=== PATIENT | male | born 1950 | race Caucasian/White ===

== ENCOUNTER → 2023-12-08 10:52 | Outpatient (REF) | payer MEDICARE, OTHER, SELFPAY | LOC: RAD 10:52 | PROVIDERS: ATTENDING PHYSICIAN Internal Medicine Hematology & Oncology; FAMILY PHYSICIAN Family Medicine | DX: C90.00 Multiple myeloma not having achieved remission (principal) | CPT/HCPCS: 77075 ==

== ENCOUNTER 2024-08-23 17:12 | Inpatient (IN) | payer MEDICARE, OTHER, SELFPAY ==
[2024-08-23] VITALS (11 sets, daily range): BP systolic 70–102; BP diastolic 52–69; BMI 27.4; BMI 27.1
--- NOTE | 2024-08-23 13:44 | ED.GENMED ---
History of Present Illness
General
Chief Complaint: Heart Rate Problem
Source: patient and family
Exam Limitations: none
Time Seen by Provider: 08/23/24 13:18
Nursing documentation reviewed up to this point in time: agreed with
History of Present Illness
History of Present Illness:
74-year-old male presents emergency department due to cough, and rapid heart rate. He was diagnosed with pneumonia clinically yesterday, started on azithromycin and Augmentin. This morning daughter noticed that his pulse was fast, and checked it
on a registered nurse cardiac with his fingers, and it diagnosed atrial fibrillation.
Past History
Past History
ED Past Medical History: Other (Prostatitis)
ED Past Surgical History: Other (Hernia repair: Stem cell transplant)
Social History
Tobacco: Non-smoker
Personal:
Review of Systems
Review of Systems
Allergies reviewed?: Yes
All Other Systems: Not applicable
Constitutional: Reports no symptoms
EENT: Reports no symptoms
Respiratory: Reports cough
Cardiac: Reports palpitations
ABD/GI: Reports no symptoms
: Reports no symptoms
Musculoskeletal: Reports no symptoms
Skin: Reports no symptoms
Neurological: Reports no symptoms
Endocrine: Reports no symptoms
Hematologic/Lymphatic: Reports no symptoms
Psychiatric: Reports no symptoms
Phy Exam
Physical Exam
Physical Exam:
Physical Exam
General: no apparent distress, not acutely ill
Neck: supple. no meningeal signs. normal posterior pharynx
Heart: s1/s2 tachycardia, irregular rhythm, no murmur. equal radial
pulses.
HEENT: Pupils equal round reactive to light, EOMI
Lungs: no acute respiratory distress. clear bilaterally
Abdomen: normal bowel sounds. not tender. no CVAT
Neuro: alert and oriented. no focal neurological deficits
Skin: no rash
Psychiatric: well kept. interactive and cooperative
Extremities: no edema. no calf tenderness. negative homans. good distal pulses
Course
Orders/Labs/Results
Orders:
Orders
08/23/24 13:16
EKG [Electrocardiogram (*1)] Urgent
Reason for Study: Atrial Fibrillation
08/23/24 13:17
EKG- Treatment ONCE
08/23/24 13:41
IV Insert/Care/Rem.- Treatment PRN
08/23/24 13:42
CR Chest Portable - 1 View Urgent
Comment:
Reason For Exam: cough, fever
Reason Study Needs to be Portable: Patient Unstable
08/23/24 14:20
Basic Metabolic Panel Urgent
Lactic Acid Q4H
Comment: CANCEL 2nd LACTIC ACID IF 1st LACTIC ACID IS LESS THAN 2
NT-proBNP Urgent
Troponin I Urgent
Blood Culture Routine
JANET Source: Blood/Venous
Specimen Description:
08/23/24 14:27
Complete Blood Count/With Diff Urgent
Manual Differential Urgent
08/23/24 14:51
0.9% Sodium Chloride 500 ml [Nss] 500 ml IV BOLUS
08/23/24 15:28
Cefepime HCl [Maxipime] 2,000 mg IV NOW STA
08/23/24 15:46
Vancomycin [Vancocin] 2,000 mg 0.9% Sodium Chloride 500 ml [Nss] 500 ml IV NOW
08/23/24 15:50
Amiodarone [Cordarone] 150 mg Dextrose 5%/Water 100 ml [D5w] 100 ml IV NOW
08/23/24 15:57
Sterile Water [Sterile Water For Injection] 10 ml .ROUTE .[facility]
08/23/24 16:00
Amiodarone [Cordarone] 900 mg DEXTROSE 5% PVC-free BAG [D5W PVC-free BAG] 500 ml IV PER PROTOCOL
Initial Dose in mg/min:: 1
Duration of initial dose (hours):: 6
Subsequent dose in mg/min:: 0.5
Duration of subsequent dose (hours):: 18
Maximum dose in mg/min:: 1
Hold and notify provider if:: Heart rate < 60 BPM or SBP < 90 mmHg or MAP < 60 mmHg
08/23/24 17:45
Lactic Acid Q4H
Comment: CANCEL 2nd LACTIC ACID IF 1st LACTIC ACID IS LESS THAN 2
Abnormal Lab Results
08/23/24 08/23/24
14:20 14:27
WBC 2.6 L 10^3/uL
(4.8-10.8)
RBC 3.03 L 10^6/uL
(4.70-6.10)
Hgb 9.7 L g/dL
(13.0-18.0)
Hct 28.4 L %
(39.0-52.0)
MCH 32.0 H pg
(27.0-31.0)
RDW 18.5 H %
(11.5-14.5)
Plt Count 40 L 10^3/uL
(130-400)
Sodium 133 L mmol/L
(135-145)
Chloride 97 L mmol/L
(98-107)
Carbon Dioxide 21 L mmol/L
(22-30)
BUN 40 H mg/dl
(9-20)
Creatinine 1.5 H mg/dL
(0.7-1.3)
Glucose 155 H mg/dl
(70-99)
Calcium 8.0 L mg/dl
(8.4-10.2)
Troponin I 0.096 H* ng/ml
08/23/24 14:27
08/23/24 14:20
Vital Signs
Initial and Last Documented VS:
Initial Vital Signs
BP
93/57
08/23/24 13:17
Last Documented Vital Signs
Temp Pulse Resp BP Pulse Ox
98.7 F 141 17 95/64 93
08/23/24 13:19 08/23/24 15:00 08/23/24 15:00 08/23/24 14:00 08/23/24 15:00
MDM/Problems Addressed
Differential Diagnosis Includes:
Rapid atrial fibrillation, pneumonia
MDM/Problems Addressed:
74-year-old male with pneumonia,, thrombocytopenia, multiple myeloma, rapid atrial fibrillation. Discussed with cardiology, who will see patient, discussed with hospitalist who will admit.
Chronic conditions affecting care: Cancer (Multiple myeloma)
Acute Exacerbation and/or Progression of Chronic Illness: Arrhythmia and Cancer (Multiple myeloma)
*Radiology
Radiology exam reviewed: radiology read reviewed (Chest x-ray right lower lobe pneumonia)
*Pulse Oximetry
Patient hypoxic: no
*EKG
Interpreted by ED Provider?: Yes
EKG Intrepretation Date: 08/23/24
EKG Intrepretation Time: 13:19
Interpretation: abnormal
Comparison EKG: changes noted
Heart Rate: 138
Rate: tachycardiac
Rhythm: a-fib
[place]: right axis deviation
Interval: normal interval
QRS Pattern: normal QRS
Ischemia: no ischemia
*Natural Gas Engineer Interpretation
Rate: tachycardiac
Interpretation: abnormal
Heart Rate: 132
Rhythm: a-fib
*Critical Care Note
Total Time (30-74mins, 75-104mins- exclusive of procedures): 45
comment:
Critical care statement: A total of 45 minutes of critical care time was provided for this patient. This includes management of unstable vital signs, evaluation of the patient at bedside, reviewing the patient's pertinent medical records, discussion
with consultants, review of old EKGs and review of pertinent medical records. This time with separate from time utilized to perform the aforementioned documented procedures
ED Attending Note
-
Portions of this chart may have been created with voice recognition software.� Occasional wrong word or��sound alike� substitutions may have occurred due to the inherent limitations of voice recognition software.
Discharge Plan
Departure
Patient Disposition: Admit
Date of Disposition: 08/23/24
Time of Disposition: 15:30
Admit to: IMU
Presentation/result/management discussed w/ accepting MD/DO: Hospitalist
Patient with high blood pressure during this ER visit?: No
Condition: Fair
Discharge Problem:
Atrial fibrillation with rapid ventricular response, Pneumonia involving right lung, Multiple myeloma, Thrombocytopenia
Prescriptions:
No Action
aspirin 81 MG tablet,delayed release (DR/EC)
81 mg PO DAILY
lysine 500 mg Tablet
500 mg PO DAILY
flaxseed 1,000 mg Capsule
1,000 mg PO DAILY
multivitamin Tablet
1 tab PO DAILY
Metamucil Packet
1 packet PO DAILY
levothyroxine 88 mcg Tablet
88 mcg PO DAILY
alfuzosin 10 mg Tablet Extended Release 24 Hr
10 mg PO DAILY
lenalidomide [Revlimid] 15 mg Capsule
15 mg PO UD
Rx Instructions:
TAKE FOR 21 DAY THEN OFF FOR 7 DAYS
calcium carbonate-vitamin D3 [Calcium 500 + D (D3)] 500 mg-3.125 mcg (125 unit) Tablet
2 tab PO DAILY
azithromycin 250 mg Tablet
0 mg PO .COMPLEX
Rx Instructions:
For 250 mg dose pack: take 500 mg today (day 1), then 250 mg for 4 days (days 2-5)
famotidine [Pepcid] 40 mg Tablet
40 mg PO HS
acetaminophen [Tylenol Extended Release] 650 mg Tablet Extended Release
1,300 mg PO [id number] PRN (Reason: MILD PAIN)
docusate sodium [Colace] 100 mg Capsule
100 mg PO DAILYPRN PRN (Reason: CONSTIPATION)
finasteride 5 mg Tablet
5 mg PO DAILY
amoxicillin-pot clavulanate [Augmentin] 875-125 mg Tablet
1 tab PO BID
Referrals:
Deion Marte Jr., DO [Family Provider] -
Interventions
Interventions:
*Risk Screen - Suicide Last Done: 08/23/24 13:19
*General Assessment Last Done: 08/23/24 13:19
*Neglect/Abuse Screening Last Done: 08/23/24 13:19
ED- Fall Risk Assessment Last Done: 08/23/24 15:12
ED- Cardiac Assessment Last Done: 08/23/24 15:12
ED- Pulmonary Assessment Last Done: 08/23/24 15:12
Discharge Date and Time
Print Language: UKRAINIAN
[2024-08-23 14:44] LABS: Lactic Acid 1.9 mmol/L (0.7-2.0)
[2024-08-23 14:44] LABS: Hematocrit 28.4 % (39.0-52.0); Hemoglobin 9.7 g/dL (13.0-18.0); Mean Corp Hgb Conc. 34.2 g/dL (33.0-37.0); Mean Corpuscular Volume 93.7 fL (80.0-94.0); Red Blood Cell Count 3.03 10^6/uL (4.70-6.10); Red Cell Dist. Width 18.5 % (11.5-14.5); White Blood Cell Count 2.6 10^3/uL (4.8-10.8)
[2024-08-23 14:51] LABS: Blood Urea Nitrogen 40 mg/dl (9-20); Carbon Dioxide 21 mmol/L (22-30); Chloride 97 mmol/L (98-107); Estimated Creatinine Clearance 39 ml/min; Glucose 155 mg/dl (70-99); Sodium 133 mmol/L (135-145); eGFR 47.95
[2024-08-23 15:00] LABS: NT-proBNP 5330 pg/ml; Troponin I 0.096 ng/ml
--- NOTE | 2024-08-23 15:41 | CON.CAR ---
Addendum entered and electronically signed by Rod Jimenez MD (Ellie) 08/23/24 18:39:
I saw and examined the patient.
The resident's note was reviewed and I agree with the note.
Comment:
Kenneth West is a 74-year-old man with a past medical history of multiple myeloma in remission who presents with new onset atrial flutter. History is obtained from patient and his daughter who is at bedside. He reportedly has had shortness of
breath, cough, fever, and chills for the past several days. He went to his PCP office yesterday and was prescribed azithromycin and Augmentin. Today his daughter checked his pulse ox and found it to be low at 80%. She also noted that his heart
rate was in the 130s-140s and was irregular. His Kardia device interpreted as atrial fibrillation, so she brought him to the ER. Heart rates here have been in the 140s. Blood pressures have been 70s-90s/50s. He was bolused with amiodarone which
did not improve heart rates. ECG shows 2-1 atrial flutter. Labs are notable for creatinine 1.5, Troponin 0.096, BNP 5330, pancytopenia with platelets of 40.
In summary this is a 74-year-old man with multiple myeloma in remission who presents with sepsis from pneumonia and atrial flutter. We are limited in being able to control his rates due to his hypotension. He cannot be on any AV lonnie blocking
agents. He also cannot be anticoagulated due to his thrombocytopenia, so he is not a candidate for chemical or direct-current cardioversion. We will have to tolerate his atrial flutter with heart rates in the 140s to 150s. I hope that this will
resolve once his sepsis is under control. We should continue to resuscitate him with IV fluids and vasopressors as needed for goal MAP greater than 65. Defer antibiotic management to his primary team. We will continue to follow along. Please
call with additional questions or concerns.
Original Note:
Consultation
Consultation Request
Date/Time Consultation Requested: 08/23/24
Date/Time Consultation Performed: 08/23/24
Requesting Provider: Dr Penelope Jimenez
Performing Provider: Dr Claudia Mason
Reason for Consultation: afib/aflutter
Medical History
Past Medical History
Past Medical History: Cancer (multiple myeloma in remission), GERD and Hypothyroidism
Past Surgical History: Other (Stem cell transplant)
Social History
Tobacco: Non-Smoker
Alcohol: None
Drug: None
Living: With Family
Employment: Retired
Family History
Family History: Reviewed & Not Pertinent
Allergies / Home Medications
Allergy/AdvReac Type Severity Reaction Status Date / Time
No Known Allergies Allergy Verified 08/04/22 08:20
�Medication �Instructions �Recorded �Confirmed �Type
aspirin 81 mg tablet,delayed 81 mg PO DAILY 02/26/14 08/23/24 History
release
flaxseed 1,000 mg capsule 1,000 mg PO DAILY 02/27/14 08/23/24 History
lysine 500 mg tablet 500 mg PO DAILY 02/27/14 08/23/24 History
alfuzosin 10 mg tablet,extended 10 mg PO DAILY 07/31/22 08/23/24 History
release 24 hr
calcium 500 mg (as 2 tab PO DAILY 07/31/22 08/23/24 History
carbonate)-vitamin D3 3.125 mcg
(125 unit) tablet
lenalidomide 15 mg capsule 15 mg PO UD 07/31/22 08/23/24 History
(Revlimid)
levothyroxine 88 mcg tablet 88 mcg PO DAILY 07/31/22 08/23/24 History
multivitamin 1 tab PO DAILY 07/31/22 08/23/24 History
psyllium 1 packet PO DAILY 07/31/22 08/23/24 History
acetaminophen 650 mg 1,300 mg PO [id number] PRN MILD PAIN 08/23/24 08/23/24 History
tablet,extended release
amoxicillin 875 mg-potassium 1 tab PO BID 08/23/24 08/23/24 History
clavulanate 125 mg tablet
azithromycin 250 mg tablet 0 mg PO .COMPLEX 08/23/24 08/23/24 History
docusate sodium 100 mg capsule 100 mg PO DAILYPRN PRN CONSTIPATION 08/23/24 08/23/24 History
(Colace)
famotidine 40 mg tablet (Pepcid) 40 mg PO HS 08/23/24 08/23/24 History
finasteride 5 mg tablet 5 mg PO DAILY 08/23/24 08/23/24 History
Review of Systems
-
All other systems: Negative unless noted
Respiratory: Cough and Trouble Breathing
Physical Exam
Vital Signs
Temp Pulse Resp BP Pulse Ox
98.7 F 141 17 95/64 93
08/23/24 13:19 08/23/24 15:00 08/23/24 15:00 08/23/24 14:00 08/23/24 15:00
Lab Results
08/23/24 14:27
08/23/24 14:20
Troponin I 0.096 ng/ml H* 08/23/24 14:20
[id number] Pept 5330 pg/ml 08/23/24 14:20
Physical Exam
General: No Apparent Distress and Comfortable
HEENT: Normocephalic and Anicteric
Respiratory: Crackles (at the bases )
Cardiac: Irregular Rhythm and Murmur (left and right sternal border ); Negative JVD
Musculoskeletal: No Edema
Neuro: AO x 3
Psych: Calm
Impression / Plan
-
Impression
Atrial fibrillation/a flutter
Hypotension
Abnormal troponin level
CAP
Assessment and plan
Atrial flutter/ afib
Immunocompromised. H/o multiple myeloma in remission
CHADVASC SCORE 2
Blood pressure readings are low 95/64.
Rate control with beta-blockers/calcium channel blockers will reduce the pressures more.
Only option is rhythm control with Amiodarone IV
Will start Apixiban 5mg BID
History of multiple myeloma in remission
Will check echocardiogram
NPO after midnight for possible WALDO tomorrow
Hypotension
Hold finasteride, alfuzosin
Abnormal Troponin levels
trop 0.096, trend troponin levels
CAP
right basilar consolidation on CXR
Continue oral azithromycin and Augmentin
Data Reviewed
-
EKG: Tracing Personally Visualized and interpreted, Report Reviewed by me and Discussed with Physician
Radiology: Image Personally Visualized and interpreted, Report Reviewed by me and Discussed with Physician
Labs: Labs Reviewed by me and Discussed with Physician
[2024-08-23 15:51] LABS: Platelet Count 40 10^3/uL (130-400)
[2024-08-23] MEDS: MAXIPIME 2000 MG IV (15:59)
[2024-08-23] MEDS: VANCOCIN 540 MG IV (16:01)
--- NOTE | 2024-08-23 16:08 | HPS.HSE ---
Family Physician
-
Family Physician: Deion Marte Jr.
Chief Complaint
-
Heart Rate Problem
History of Present Illness
Patient is a 74-year-old male with PHM of hypothyroidism, enlarged prostate, hyperlipidemia, and multiple myeloma. Patient presented to [facility] for evaluation of cough and rapid heart rate. Patient and daughter supplied history for this
assessment. Patient yesterday diagnosed out patient with pneumonia and PCP started azithromycin and Augmentin for treatment. Patient states he has had chills, sweats, shortness of breath with exertion, nausea and vomiting yesterday, unsure if was
febrile at home. Denies any constipation, diarrhea, chest pain, palpitations, or urinary symptoms. Daughter stated this morning he did not look well when she placed a POX on patient and his SpO2 was in mid 80s and HR in 150s. She then utilized a
monitor that recorded Afib so EMS was called to transport patient.
Medical History
Past Medical History
Past Medical History: Reports Other
Additional Past Medical History:
hypothyroidism
enlarged prostate
hyperlipidemia
multiple myeloma
Past Surgical History: Reports Other
Additional Past Surgical History:
inguinal hernia 2021
Social History
Tobacco: Non-smoker
Alcohol: None
Drug: None
Personal: Single
Living: Alone
Employment: Retired
Family History
Family History: Not pertinent
Allergies / Home Medications
Allergies reflects when Allergies were last updated in [employer] ([employer]
Home Medications with original date entered in [employer] ([employer])
Allergy/Medication List:
Allergies
Allergy/AdvReac Type Severity Reaction Status Date / Time
No Known Allergies Allergy Verified 08/04/22 08:20
Home Medications Table - record
�Medication �Instructions �Recorded �Confirmed
aspirin 81 mg tablet,delayed 81 mg PO DAILY 02/26/14 08/23/24
release
flaxseed 1,000 mg capsule 1,000 mg PO DAILY 02/27/14 08/23/24
lysine 500 mg tablet 500 mg PO DAILY 02/27/14 08/23/24
alfuzosin 10 mg tablet,extended 10 mg PO DAILY 07/31/22 08/23/24
release 24 hr
calcium 500 mg (as 2 tab PO DAILY 07/31/22 08/23/24
carbonate)-vitamin D3 3.125 mcg
(125 unit) tablet
lenalidomide 15 mg capsule 15 mg PO UD 07/31/22 08/23/24
(Revlimid)
levothyroxine 88 mcg tablet 88 mcg PO DAILY 07/31/22 08/23/24
multivitamin 1 tab PO DAILY 07/31/22 08/23/24
psyllium 1 packet PO DAILY 07/31/22 08/23/24
acetaminophen 650 mg 1,300 mg PO [id number] PRN MILD PAIN 08/23/24 08/23/24
tablet,extended release
amoxicillin 875 mg-potassium 1 tab PO BID 08/23/24 08/23/24
clavulanate 125 mg tablet
azithromycin 250 mg tablet 0 mg PO .COMPLEX 08/23/24 08/23/24
docusate sodium 100 mg capsule 100 mg PO DAILYPRN PRN CONSTIPATION 08/23/24 08/23/24
(Colace)
famotidine 40 mg tablet (Pepcid) 40 mg PO HS 08/23/24 08/23/24
finasteride 5 mg tablet 5 mg PO DAILY 08/23/24 08/23/24
Review of Systems
-
Constitutional: Reports Fever, Night Sweats and Chills
EENT: Reports No Symptoms
Respiratory: Reports Cough and Trouble Breathing (dyspnea with exertion)
Cardiac: Reports No Symptoms
Abdomen/GI: Reports Nausea and Vomiting
: Reports No Symptoms
Musculoskeletal: Reports No Symptoms
Skin: Reports No Symptoms
Neurological: Reports No Symptoms
Endocrine: Reports No Symptoms
Hematologic/Lymphatic: Reports No Symptoms
Psych: Reports No Symptoms
Physical Exam
Vital Signs
Vital Signs
Temp Pulse Resp BP Pulse Ox
98.7 F 141 17 95/64 93
08/23/24 13:19 08/23/24 15:00 08/23/24 15:00 08/23/24 14:00 08/23/24 15:00
Physical Exam
General: Well Developed, Well Nourished, Comfortable and Conversant
HEENT: NormoCephalic, Moist mucous membranes, Atraumatic, PERRLA, [place] Conjunctivae, Nose Appears Normal, Ears Appear Normal and Hearing Impaired (hard of hearing)
Respiratory: Clear; No Wheezes, Rales, Rhonchi or Crackles
Cardiac: S1/S2 and Irregular Rhythm; No Murmur, Rub or Gallop
Breast: Deferred by me
GI: Soft, Non Tender, Non Distended and Normal Bowel Sounds; No Organomegaly
Rectal: Deferred by Provider
Genito-urinary: Deferred by me
Musculoskeletal: No Clubbing, No Cyanosis and No Edema
Skin: Warm, Dry and IV/Catheter Site; No Rash
Neuro: Awake, Alert, AO x 3, Nonfocal/grossly intact and Cranial Nerves Intact
Hematologic/Lymphatic: No Lymphadenopathy
Psych: Calm and Intact Judgment/Insight
Laboratory Results
-
08/23/24 14:27
08/23/24 14:20
Laboratory Results
Lactic Acid 1.9 mmol/L (0.7-2.0) 08/23/24 14:20
Total Bilirubin Cancelled 08/23/24 14:20
AST Cancelled 08/23/24 14:20
ALT Cancelled 08/23/24 14:20
Alkaline Phosphatase Cancelled 08/23/24 14:20
Troponin I 0.096 ng/ml H* 08/23/24 14:20
Data Reviewed
-
Diagnostic Radiology: Report Reviewed by me (CXR: Mild right basilar pneumonia)
Medical Tests (Nuc Med, Echo, EKG etc): Report Reviewed by me (EKG: ATRIAL FLUTTER WITH 2:1 A-V CONDUCTION RIGHT AXIS DEVIATION)
Lab Data: Labs Reviewed by me (BUN 40, Creat 1.5)
Impression/Plan
-
IMPRESSION/PLAN:
#Pneumonia/KEREN
- CXR - Mild right basilar pneumonia
- Vancomycin, Zosyn
- IVF: NSS 100cc/hr
- check covid/flu
#Atrial Flutter
- EKG: ATRIAL FLUTTER WITH 2:1 A-V CONDUCTION; RIGHT AXIS DEVIATION
- Consult Cardiology
- cardiology to contact Oncologist at [facility] regarding starting anticoagulant
#GERD
- continue famotidine
#Hypothyroidism
- continue levothyroxine
#Enlarged prostate/BPH
- continue finasteride, alfuzosin
#Hyperlipidemia
- heart healthy diet
- continue Aspirin 81mg
#Multiple myeloma in remission
- stem cell transplant 2019
- hold lenalidomide
Full Code
DVT Px: SCDs
[2024-08-23] MEDS: CORDARONE 103 MG IV (16:20)
[2024-08-23] MEDS: CORDARONE 518 MG IV (16:31)
--- NOTE | 2024-08-23 17:09 | W.PN.UPDATE ---
Update Note
Progress Note Update
This is an addendum to H&P written by Vanessa Cazares on 08/23/2024. Patient seen and examined independently with TRAVEL ACCOMMODATIONS RATER.
74-year-old male past medical history of multiple myeloma on Revlimid in remission, Hhypothyroidism, BPH, presenting with chills, fatigue, shortness of breath over the past several days. He was diagnosed with pneumonia yesterday and started on
azithromycin/Augmentin. Today he was noted to be in new onset atrial fibrillation at home.
Patient arrives with blood pressure 90s systolic with heart rate up to 154. New onset atrial fibrillation. Labs show KEREN, cardiac BNP of 5000, pancytopenia with leukocytes of 2.6, platelets of 40.
Chest x-ray shows mild right basilar pneumonia. Patient with sepsis secondary to right basilar pneumonia and new onset atrial fibrillation with RVR. IV fluids started. Check blood culture. Vancomycin/Zosyn. Check influenza/COVID. Check TSH.
Amiodarone drip started. Will need to start Eliquis however daughter requesting that cardiology discussed with his oncologist at [facility] as to whether safe to start Eliquis. Check echo. Daughter requesing evaluation for PE. Trend
troponins. Consider CT PE after renal function improves.
Will consult oncology due to pancytopenia and thrombocytopenia in the setting of sepsis.
[2024-08-23 17:47] LABS: COVID-19 Antigen Negative (Negative)
[2024-08-23] MEDS: NSS 1000 IV (18:46)
--- NOTE | 2024-08-23 18:59 | PHA.VAN.IN ---
Assessment
- Assessment
Renal Function: Appears elevated from baseline (06/25/22 BASELINE SCR = 0.8)
Concomitant Antimicrobials: ZOSYN
- Previous Dosing Experience
Previous Regimen: 1500MG IV Q12H
Date of Regimen: 02/27/14
Provided Trough of: UNKNOWN
Provided AUC of: UNKNOWN
Patient's SCR is: Elevated compared to previous dosing experience (02/27/14 SCR = 0.8)
Patient's weight is: Decreased compared to previous dosing experience (02/27/14 WT = 84.6 KG)
Plan
- Plan
Initial / Loading Dose: 2GM
Maintenance Regimen: DOSING BY RANDOM LEVELS
Monitoring: RANDOM VANCOMYCIN LEVEL 08/24/24 AM
Pharmacokinetics Vancomycin I
- -
Patient Age: 74
Patient Sex: Male
Vancomycin Day #: 1
Indication: Pulmonary/Respiratory (SEPSIS)
Requesting Provider: TORI
Height / Weight:
Height 5 ft 7 in
Actual Weight 79.3 kg
Pertinent Past Medical History: MULTIPLE MYELOMA
- Vital Signs / Lab Results
Temp Pulse Resp BP Pulse Ox
98.7 F 150 31 94/55 93
08/23/24 13:19 08/23/24 18:45 08/23/24 18:45 08/23/24 18:00 08/23/24 16:45
Lab Results - Hematology
08/23/24
14:27
WBC 2.6 L
Lab Results - Chemistry
08/23/24
14:20
BUN 40 H
Creatinine 1.5 H
Estimated Creat Clear 39
Albumin Cancelled
08/23/24 08/23/24
14:20 17:45
Lactic Acid 1.9 Cancelled
Microbiology Results
08/23/24 17:22 Influenza Types A & B (KENDRA) - Final
Nasal Swab Negative for Influenza A & B, NAAT
Negative results must be combined with clinical observations
and patient history.
Nucleic Acid Amplification test (NAAT)performed on the
[employer] NOW platform.
[2024-08-23 19:41] LABS: Urine Albumin 1+ (Neg - Trace); Urine Bilirubin Negative (Negative); Urine Character Slightly Cloudy (Clear); Urine Color Yellow; Urine Glucose Negative (Negative); Urine Ketone Negative (Negative); Urine Leukocyte Negative (Negative); Urine Nitrite Negative (Negative); Urine Occult Blood 3+ (Negative); Urine Urobilinogen Negative (Neg - 1+)
[2024-08-23 19:54] LABS: Urine Red Blood Cell 16-20 /HPF (0-2); Urine White Cell 0-2 /HPF (0-5)
[2024-08-23 19:55] LABS: Urine Bacteria Many (Negative)
[2024-08-23] MEDS: LIORESAL 2.5 MG PO (20:03)
[2024-08-23] MEDS: TYLENOL 650 MG PO (21:45)
[2024-08-23] MEDS: PEPCID 20 MG PO (21:46)
--- NOTE | 2024-08-23 22:15 | PTCARENOTE ---
Pt received from ED via stretcher. Pulled over to bed x3 without incident. AAOx3, slightly [place]. Full CHG bath upon arrival to unit. Telemetry aflutter 140s-150s. Admission assessment completed w/daughter at bedside. Full physical assessment
completed (refer to worklist). Oriented to surroundings and plan of care discussed. Assist x1 w/urinal. Knee high SCDs placed. Small ruptured blood blister vs abrasion noted to R lower back/upper buttocks, small silicone border foam placed. NSS
infusing via #20 LW without complication, #20 LAC patent. Call quintero within reach. Plan of care ongoing.
[2024-08-23] MEDS: ZOSYN 100 IV (22:39)
[2024-08-24] VITALS (57 sets, daily range): BP systolic 69–121; BP diastolic 36–93; BMI 27.2
[2024-08-24] MEDS: NSS 500 IV ×2 (00:14→02:15)
--- NOTE | 2024-08-24 01:36 | PTCARENOTE ---
FORGING MACHINE OPERATOR covering house made aware of soft BP and low MAP. Daughter hesitant to start pressors, concerns communicated. Electronic orders received for IV bolus - NSS at 500 mL (refer to MAR). BP and MAP improved post administration. Plan of care
ongoing.
[2024-08-24] MEDS: TYLENOL 650 MG PO ×5 (02:07→22:59)
--- NOTE | 2024-08-24 02:57 | PTCARENOTE ---
BPs and MAP low again, TT to EFFICIENCY MINER BLASTING covering house, electronic orders for another IV bolus and to increase IVF to 150 mL. (refer to MAR). AM labs and serial trops drawn. Daughter at bedside.
[2024-08-24 03:19] LABS: Blood Urea Nitrogen 43 mg/dl (9-20); Calcium 7.4 mg/dl (8.4-10.2); Carbon Dioxide 20 mmol/L (22-30); Chloride 102 mmol/L (98-107); Estimated Creatinine Clearance 41 ml/min; Glucose 124 mg/dl (70-99); Potassium 3.8 mmol/L (3.5-5.1); Sodium 135 mmol/L (135-145); eGFR 47.95
[2024-08-24 03:27] LABS: Troponin I 0.126 ng/ml
[2024-08-24 03:32] LABS: Hematocrit 22.4 % (39.0-52.0); Hemoglobin 7.9 g/dL (13.0-18.0); Mean Corp Hgb Conc. 35.3 g/dL (33.0-37.0); Mean Corpuscular Hgb 33.5 pg (27.0-31.0); Mean Corpuscular Volume 94.9 fL (80.0-94.0); Mean Platelet Volume 12.1 fL (7.4-10.4); Platelet Count 18 10^3/uL (130-400); Red Blood Cell Count 2.36 10^6/uL (4.70-6.10); Red Cell Dist. Width 17.9 % (11.5-14.5); White Blood Cell Count 3.7 10^3/uL (4.8-10.8)
[2024-08-24 03:40] LABS: Vancomycin Random 10.2 ug/ml
[2024-08-24] MEDS: ZOSYN 100 IV ×4 (03:56→22:48)
--- NOTE | 2024-08-24 04:53 | W.PN.UPDATE ---
Addendum entered and electronically signed by PAOLA Peterson (Linda) 08/24/24 06:53:
Patient's BP remains soft in 70 sys, map 65-66 and patient having increased cough. Patient making adequate urine more service parts driver in color this AM - 1400cc over night. Discussed case with Cardiology this AM via TT, recommended Rx 500ml IV bolus, stop
IVF - if no improvement to MAP start Levophed gtt. CXR also ordered due to increased cough and crackles.
Original Note:
Update Note
Progress Note Update
notified by RN, patient's hypotensive map <65. Rx 500ml NS bolus x2, increased IVF from 100ml/hr to 150ml/hr. RN to continue to monitor for need for vasopressor.
[2024-08-24] MEDS: NSS 1000 IV ×2 (05:49→15:06)
[2024-08-24] MEDS: PROTONIX IV 40 MG IV (05:49)
[2024-08-24] MEDS: SYNTHROID 88 MCG PO (06:09)
--- NOTE | 2024-08-24 06:50 | PTCARENOTE ---
Pt now with worsening dry hacking cough. Requesting cough medicine. [employer] covering house contacted. Electronic orders received for PCXR, robitussin and NSS bolus. Lungs auscultated for crackles 1/3 up bilaterally. SpO2 95 on 3L. Pt does not
appear to be in distress, more annoyed and tired from cough and little sleep overnight. Awaiting meds to be profiled from pharmacy.
[2024-08-24] MEDS: ROBITUSSIN DM 5 ML PO ×2 (08:03→20:06)
[2024-08-24] MEDS: ASPIR LOW (ENTERIC COATED) 81 MG PO (08:26)
[2024-08-24] MEDS: PROSCAR 5 MG PO (08:27)
[2024-08-24] MEDS: FLOMAX 0.4 MG PO (08:27)
[2024-08-24] MEDS: OSCAL 500 + D 1000 MG PO (08:27)
--- NOTE | 2024-08-24 08:46 | W.PN.HOSP.TC ---
Today's Communication/Plan
-
see bold
Assessment / Plan
Assessment / Plan
#Septic shock
#Pneumonia
#Positive blood cultures
Acute hypoxic respiratory sufficiency
Flu/covid neg
08/23/2024 shows gram-positive cocci in clusters�follow-up on ID and sensitivity
08/24/2024 repeat blood cultures today
Continue vancomycin/Zosyn, check urine Legionella/strep antigen
Start Levophed for to keep MAP greater than 65, IV fluids at 100 cc/h
Wean oxygen as tolerated
Follow fever curve and white count
#Acute kidney injury
Due to sepsis
IV fluids as above, trend creatinine, no nephrotoxic drugs/NSAIDs
#New onset atrial fibrillation with RVR
Due to sepsis
Unable to tolerate amiodarone
Not a candidate for anticoagulation due to thrombocytopenia
Treat sepsis as above per cardiology
#History of multiple myeloma
#Pancytopenia
#Thrombocytopenia
Suspect secondary to sepsis
Consult oncology
#GERD
Continue Pepcid, add Protonix daily, add Tums/Maalox
#Hypothyroidism
Continue levothyroxine
#BPH
Continue finasteride, alfuzosin
DVT prophylaxis�SCDs secondary to thrombocytopenia
Full code
Updated daughter at bedside 08/24
Total time spent to see the patient on the floor, examine the patient, review data and lab results, discuss treatment plan with patient, nursing staff around 53 minutes.
Physical Exam
General: Appears to not feel well, no acute distress
HEENT: Normocephalic, Atraumatic, EOMI, MMM
Respiratory: Right basilar crackles
Cardiac: Normal S1/S2, irregularly irregular, tachycardic rate
GI: Soft, Nontender, Nondistended, Normal Bowel Sounds
Extremities: No Clubbing, Cyanosis
Neuro: Nonfocal/Grossly Intact
Anticipated Discharge: > 48 hours
Subjective/Interval History
-
Date of Service: August 24, 2024
Patient reports feeling tired. He has a cough, and continues to be febrile. Denies palpitations, denies shortness of breath. No nausea, no vomiting.
Objective Data
-
Labs:
Laboratory Results
08/24/24 08/24/24 08/24/24
02:44 08:24 08:41
WBC 3.7 L Pending
Hgb 7.9 L Pending
Hct 22.4 L Pending
Plt Count 18 L* D Pending
Sodium 135
Potassium 3.8
Chloride 102
Carbon Dioxide 20 L
BUN 43 H
Creatinine 1.5 H
Glucose 124 H
Calcium 7.4 L
Total Bilirubin Pending
AST Pending
ALT Pending
Alkaline Phosphatase Pending
Vital Signs:
Vital Signs
Temp Pulse Resp BP Pulse Ox
100.2 F 132 22 78/59 93
08/24/24 07:13 08/24/24 06:02 08/24/24 06:02 08/24/24 06:02 08/24/24 06:02
I&O
08/23/24 08/24/24 08/25/24
06:59 06:59 06:59
Intake Total 1500 / 1500
Output Total 1575 / 1575
Balance -75 / -75
--- NOTE | 2024-08-24 08:58 | PHA.VAN.FU ---
Vancomycin Assessment / Plan
- Assessment
Renal Function: Stable
In the past 24 hrs, patient has been: Febrile
Concomitant Antimicrobials: piperacillin/tazobactam
- Assessment - Therapeutic Drug Monitoring
Random Level: 10.2 - drawn ~10.5H after 2g loading dose
- Dosing Plan
Dosing by Level: Re-dose today (Vanc 1250mg)
- Monitoring Plan
Random Level: 08/25 0600
MRSA Screen: Ordered per protocol
- Follow Up
Pharmacy will continue to follow.
Vancomycin Follow UP
- -
Patient Age: 74
Patient Sex: Male
Vancomycin Day #: 2
Indication: Pulmonary/Respiratory
Requesting Provider: Pooja Cazares
Pertinent Antimicrobial Allergies:
NKDA
Height / Weight:
Height 5 ft 8 in
Actual Weight 80.7 kg
Pertinent Past Medical History: Multiple Myeloma (remission, stem cell transplant 2019)
- Vital Signs / Lab Results
Temp Pulse Resp BP Pulse Ox
100.2 F 132 22 78/59 93
08/24/24 07:13 08/24/24 06:02 08/24/24 06:02 08/24/24 06:02 08/24/24 06:02
Lab Results - Hematology
08/23/24 08/24/24
14:27 02:44
WBC 2.6 L 3.7 L
Lab Results - Chemistry
08/23/24 08/24/24
14:20 02:44
BUN 40 H 43 H
Creatinine 1.5 H 1.5 H
Estimated Creat Clear 39 41
Albumin Cancelled
08/23/24 08/23/24
14:20 17:45
Lactic Acid 1.9 Cancelled
Lab Results - Urine
08/23/24
19:20
Urine Nitrite (Reflex) Negative
Leukocyte Esterase Rfl Negative
Microbiology Results
08/23/24 17:22 Influenza Types A & B (KENDRA) - Final
Nasal Swab Negative for Influenza A & B, NAAT
Negative results must be combined with clinical observations
and patient history.
Nucleic Acid Amplification test (NAAT)performed on the
[employer] platform.
Therapeutic Drug Monitoring
Random Vancomycin 10.2 ug/ml 08/24/24 02:44
[2024-08-24 09:04] LABS: Troponin I 0.107 ng/ml
[2024-08-24 09:11] LABS: Hematocrit 25.8 % (39.0-52.0); Mean Corp Hgb Conc. 34.9 g/dL (33.0-37.0); Mean Corpuscular Volume 91.8 fL (80.0-94.0); Mean Platelet Volume 12.2 fL (7.4-10.4); Platelet Count 18 10^3/uL (130-400); Red Blood Cell Count 2.81 10^6/uL (4.70-6.10); Red Cell Dist. Width 18.1 % (11.5-14.5); White Blood Cell Count 2.5 10^3/uL (4.8-10.8)
--- NOTE | 2024-08-24 09:12 | W.PN.CD ---
Addendum entered and electronically signed by Rod Jimenez MD (Ellie) 08/24/24 09:35:
I saw and examined the patient.
The resident's note was reviewed and I agree with the note.
Comment:
Kenneth West is a 74-year-old man with a past medical history of multiple myeloma in remission who presents with new onset atrial fibrillation in the setting of sepsis secondary to pneumonia.
Heart rates overnight ranged from 110s to 130s. It seems that he is now in atrial fibrillation (yesterday atrial flutter). Blood pressures were in the 70s/60s but have now improved to 110s/70s with IV fluids. No pressors started. He has been
started on broad-spectrum antibiotics by primary team for his pneumonia. His platelets this morning are 18,000, creatinine stable at 1.5. Cultures are not growing anything.
We are limited in being able to control his rates due to his hypotension. He cannot be on any AV lonnie blocking agents. He also cannot be anticoagulated due to his thrombocytopenia, so he is not a candidate for chemical or direct-current
cardioversion. We will have to tolerate his atrial fibrillation with RVR. I hope that this will resolve once his sepsis is under control, and it seems to be improving already. We should continue to resuscitate him with IV fluids and vasopressors
as needed for goal MAP greater than 65. Defer antibiotic management to his primary team. Troponin is likely due to rapid atrial fibrillation and has peaked, can stop trending. We will update an echocardiogram today. We will continue to follow
along. Please call with additional questions or concerns.
Original Note:
Today's Communication / Plan
-
Continue to treat sepsis
Not a candidate for chemical or direct cardioversion due to thrombocytopenia
Check lactate and LFTS
repeat EKG
echo
Impression / Plan
-
Impression
Atrial fibrillation/a flutter
Hypotension
Abnormal troponin level
CAP
Assessment and plan
Atrial flutter/ afib
Immunocompromised. H/o multiple myeloma on maintenance therapy
CHADVASC SCORE 2
MAP goal >65, currently 73
repeat 12 lead EKG
Rates are variable, suspect afib >aflutter
Due to hypotension holding on to rate control measures
Due thrombocytopenia (18) not a candidate for chemical or direct cardioversion
HOLD AC
check echo
Sepsis secondary to pneumonia
IV zosyn and IV vancomycin
GOAL MAP >65, currently 73
Pressors not required as map >65
right basilar consolidation worsened on CXR
check lactate and LFTs
monitor MAP and BP
Abnormal Troponin levels
trending down, 0.107
Physical Exam
Vital Signs/Labs
Vital Signs
Temp Pulse Resp BP Pulse Ox
100.2 F 132 22 78/59 93
08/24/24 07:13 08/24/24 06:02 08/24/24 06:02 08/24/24 06:02 08/24/24 06:02
08/23/24 08/24/24 08/25/24
06:59 06:59 06:59
Actual Weight 80.7 kg
08/24/24 08:24
08/24/24 02:44
08/23/24
14:20
Otf-T-Lxiuzszrfii Pept 5330
LAB Results
08/23/24 08/24/24 08/24/24
14:20 02:44 02:44
Troponin I 0.096 H* Cancelled 0.126 H*
08/24/24 08/24/24 08/24/24
08:15 08:24 14:15
Troponin I Cancelled 0.107 H* Cancelled
08/24/24
20:15
Troponin I Cancelled
Physical Exam
Constitutional: No acute distress
EENT: Anicteric and Moist mucous membranes
Cardiovascular: Pedal edema is absent and Rhythm/rate is irregular
Respiratory: Crackles Present (bilaterally at the bases )
GI: Soft
Neuro/Psych: AO x 3
Data Reviewed
-
Date of Service: August 24, 2024
Medical Decision Making: Reviewed Test Results
EKG: Report Reviewed by me and Ordered by me
X-Ray/CT/US/MRI/NUC/PET: Image Personally Visualized and interpreted, Report Reviewed by me and Discussed with Physician
Labs: Labs Reviewed by me and Labs Ordered by me
[2024-08-24] MEDS: VANCOCIN 275 MG IV (10:26)
[2024-08-24 10:28] LABS: Band Neutrophils 0 % (0-3); Eosinophils 6 % (0-6); Lymphocytes 9 % (20-51); Monocytes 2 % (2-9); Segmented Neutrophils 13 % (42-75)
[2024-08-24 10:29] LABS: Atypical Lymphocytes 70 %; Total Cells Counted 100
[2024-08-24 10:32] LABS: Platelets Checked Yes
[2024-08-24 10:34] LABS: Anisocytosis 1+; Dohle Bodies Moderate; Normal RBC Morphology No
[2024-08-24 10:49] LABS: Band Neutrophils 2 % (0-3); Lymphocytes 9 % (20-51); Segmented Neutrophils 7 % (42-75)
[2024-08-24 10:50] LABS: Atypical Lymphocytes 71 %; Eosinophils 5 % (0-6); Metamyelocytes 1 % (-); Monocytes 5 % (2-9); Total Cells Counted 100
[2024-08-24 10:51] LABS: Anisocytosis 1+; Normal RBC Morphology No; Platelets Checked Yes; Rouleaux Moderate
[2024-08-24 10:52] LABS: Absolute Neutrophils -Man Diff 0.3 10^3/uL (1.4-6.5)
[2024-08-24 10:54] LABS: Absolute Neutrophils -Man Diff 0.3 10^3/uL (1.4-6.5)
--- NOTE | 2024-08-24 11:06 | PTCARENOTE ---
Assumed care of patient at beginning of this shift from previous RN with NSS infusing at 150ml/hr. Crackles noted 1/3 up b/l posteriorly. Patient with more frequent cough per daughter. POx 93%; tachypneic with BARRAGAN (minimal exertion). IVF bolus was
entered but daughter wanted to wait until CXR was read. Cardiology resident in room to speak with . Daughter then asked to speak with Communication Assistant as well; Dr Jimenez in to speak with daughter and patient. IVF bolus and maintenance IVF d/c'd;
levophed order placed on hold. NPO cancelled and diet ordered. EKG done per order and showed afib with RVR, troponin 0.107; both cardiology resident and Dr King made aware. Resident ordered further labs, including lactic acid; reviewed with her and ok
to draw labs with next troponin. See worklist for full assessment and vital signs; see MAR for med administration.
--- NOTE | 2024-08-24 11:39 | PTCARENOTE ---
Addendum entered by Coby Buitrago RN 08/24/24 11:42:
Tums and Maalox also ordered.
Original Note:
Patient's daughter notified this nurse that patient is starting to hiccup and belch more frequently. Patient received one-time protonix on previous shift and currently ordered Pepcid at HS. BPs continue to run low with MAP 65. Dr King made aware;
protonix ordered.
[2024-08-24] MEDS: LEVOPHED 250 IV (12:17)
[2024-08-24] MEDS: PROTONIX 40 MG PO (12:18)
--- NOTE | 2024-08-24 12:26 | PTCARENOTE ---
BP 86/44, MAP 58. Dr King made aware; levophed ordered and started. Patient and daughter updated.
--- NOTE | 2024-08-24 13:52 | PTCARENOTE ---
T 100.4; HR 150s. Patient with increased anterior chest congestion with cough and difficulty brining anything up. +BARRAGAN. Increased work of breathing. BP 91/60, MAP 71. Levo continues at 2mcg/min. [place] text sent to Dr King, Dr Jha (both read text)
and Dr Jimenez (text not read as of yet). No further orders given at this time.
[2024-08-24 14:23] LABS: Glucose - Point of Care 151 mg/dl (70-99)
--- NOTE | 2024-08-24 14:44 | W.PN.UPDATE ---
Update Note
Progress Note Update
Called by nursing for RR as hypoxia, febrile and increased rates to 160's. He is aaox3 and improving after fluid bolus and low dose levophed---HR improved to 130s, bp now in the 100's with map 74.
I suspect overall issues is septic shock. Bcx now positive. He is on broad spec antibiotic, in the setting of pancytopenia. No indication for emergent cardioversion. Will hold off on Amiodarone if we can as he isn't a candidate for anticoagulation.
ALthough if needed would be forced to consider. If hr elevated again, could try vasopressin in lieu of levophed.
Daugther at the bedside and I updated her.
He is ok for IMU currently but with any progression of decline I would escalate his level of care.
I discussed with Dr King(via [place] Text) and Nurse Tenorio at the bedside.
total CCT at the bedside and providing care 31 minutes.
[2024-08-24 14:51] LABS: Hematocrit 25.8 % (39.0-52.0); Mean Corpuscular Hgb 32.7 pg (27.0-31.0); Mean Corpuscular Volume 93.5 fL (80.0-94.0); Mean Platelet Volume 11.9 fL (7.4-10.4); Platelet Count 25 10^3/uL (130-400); Red Blood Cell Count 2.75 10^6/uL (4.70-6.10); Red Cell Dist. Width 18.6 % (11.5-14.5); White Blood Cell Count 3.1 10^3/uL (4.8-10.8)
[2024-08-24 14:58] LABS: INR 1.81; PT 21.1 Sec (11.4-14.6)
[2024-08-24 14:59] LABS: APTT 33.8 Sec (23.4-35.0)
[2024-08-24 15:06] LABS: Lactic Acid 2.8 mmol/L (0.7-2.0)
[2024-08-24 15:10] LABS: ALT (SGPT) 29 U/L (0-50); AST (SGOT) 52 U/L (17-59); Alkaline Phosphatase 50 U/L (38-126); Blood Urea Nitrogen 45 mg/dl (9-20); Carbon Dioxide 22 mmol/L (22-30); Chloride 102 mmol/L (98-107); Estimated Creatinine Clearance 41 ml/min; Glucose 146 mg/dl (70-99); Potassium 3.8 mmol/L (3.5-5.1); Sodium 136 mmol/L (135-145); Total Bilirubin 6.7 mg/dl (0.2-1.3); Total Protein 5.4 g/dl (6.3-8.2); eGFR 47.95
[2024-08-24 15:19] LABS: Troponin I 0.094 ng/ml
--- NOTE | 2024-08-24 15:40 | RR ---
A Rapid Response was called on this patient, please see Rapid Response form. Rapid response called for increased work of breathing, POx 88% on 3l n/c (increased to 4L n/c), HR sustained 160s. See lab results/rapid response form.
--- NOTE | 2024-08-24 15:41 | PTCARENOTE ---
Lactic acid resulted 2.8. Dr King made aware. Preliminary positive BC resulted during rapid response: Dr King and Dr Jacobson aware. Troponin 0.094. Reviewed troponin results with Dr Mason who cancelled further troponins as patient peaked at 0.126.
Both daughters at the bedside.
--- NOTE | 2024-08-24 15:51 | PTCARENOTE ---
Labs pending from this morning that were sent during rapid response. Order cancelled as duplicate.
[2024-08-24 16:22] LABS: Direct Bilirubin 4.7 mg/dl (0.0-0.4)
--- NOTE | 2024-08-24 17:19 | CM ---
Addendum entered by Adele Schulz RN 08/24/24 17:27:
Patient is HUGHES and has hearing aides.
Original Note:
Patient with Dx septic shock, PNA, KEREN, new rapid AFib. Febrile. O2 4L. Receiving Levophed gtt, IV Abx, IVF. Rapid response today due to increased work of breathing. PT held today.
Met with patient, daughter Urvashi and Marj;
the patient resides alone in a 2 story house with 2 RONEL.
The patient has been independent in ADLs and ambulation.
He is active gardening, walking the dog and drives.
His daughter Marj lives next door (her ph [phone]).
No housing/food/utility/transport insecurity.
no DME, prior VN or SNF.
PCP - Deion Marte
[facility]
Plan follow patient's O2 needs and mobility needs.
Plan TBD.
--- NOTE | 2024-08-24 18:32 | PTCARENOTE ---
Urine resulted positive for L pneumophila. Dr King made aware via tiger text. Patient with T101.4 ax; tylenol given as ordered prn. Oral temp not taken as patient just ate hot soup.
--- NOTE | 2024-08-24 20:38 | W.PN.UPDATE ---
Update Note
Progress Note Update
Patient's urine culture positive for L. pneumophila Ag. Discussed with oncall ID consult via TT, recommended Doxycycline 100mg IV now, and PO q12hrs.
[2024-08-24] MEDS: VIBRAMYCIN 260 MG IV (21:02)
[2024-08-24] MEDS: PEPCID 20 MG PO (21:38)
[2024-08-24] MEDS: MELATONIN 3 MG PO (21:38)
[2024-08-24 23:35] LABS: Lactic Acid 2.6 mmol/L (0.7-2.0)
[2024-08-25] VITALS (51 sets, daily range): BP systolic 67–146; BP diastolic 43–97; BMI 28.1
[2024-08-25] MEDS: NSS 1000 IV ×3 (01:00→21:46)
--- NOTE | 2024-08-25 02:02 | PTCARENOTE ---
Pt received from previous shift in bed. Family at bedside. AAOx3, TUSCARORA, flat affect, restless. Telemetry = afib/aflutter 130s-150s. Full physical assessment documented (refer to worklist). Daughter with multiple concerns/issues regarding
treatments and POC. Communicated to CCNA covering house and Nursing Aircraft Cleaner made aware. Electronic orders received (refer to MAR). Ongoing emotional support. Nursing Aircraft Cleaner on floor to speak w/daughter Urvashi. Repeat lactic remains
elevated 2.6 --> TT to CCNA, repeat lactic entered per protocol. Full bed bath and HS hygiene completed. #22 LW w/levo gtt --> titrated to maintain MAP>65. #20 RAC w/ constant distal occlusion despite use of no-no, VAT RN contacted for restart.
#22 RH w/NSS at 100 mL/hr infusing without complication. Medicated w/PRN robitussin and tylenol at pt's request. Call quintero within reach. Plan of care ongoing.
[2024-08-25] MEDS: ZOSYN 100 IV (04:52)
[2024-08-25] MEDS: SYNTHROID 88 MCG PO (05:11)
[2024-08-25] MEDS: TYLENOL 650 MG PO ×5 (05:11→23:17)
[2024-08-25] MEDS: XOPENEX 0.63 MG INHALANT SOLUTION INH (05:44)
[2024-08-25 06:47] LABS: Hematocrit 22.2 % (39.0-52.0); Hemoglobin 7.9 g/dL (13.0-18.0); Mean Corp Hgb Conc. 35.6 g/dL (33.0-37.0); Mean Corpuscular Hgb 32.5 pg (27.0-31.0); Mean Corpuscular Volume 91.4 fL (80.0-94.0); Mean Platelet Volume 12.3 fL (7.4-10.4); Platelet Count 16 10^3/uL (130-400); Red Blood Cell Count 2.43 10^6/uL (4.70-6.10); Red Cell Dist. Width 18.2 % (11.5-14.5); White Blood Cell Count 1.8 10^3/uL (4.8-10.8)
[2024-08-25 06:49] LABS: Blood Urea Nitrogen 43 mg/dl (9-20); Calcium 7.6 mg/dl (8.4-10.2); Carbon Dioxide 17 mmol/L (22-30); Chloride 105 mmol/L (98-107); Estimated Creatinine Clearance 47 ml/min; Glucose 130 mg/dl (70-99); Potassium 3.9 mmol/L (3.5-5.1); Sodium 137 mmol/L (135-145); eGFR 56.93
[2024-08-25 06:53] LABS: Lactic Acid 1.7 mmol/L (0.7-2.0)
--- NOTE | 2024-08-25 07:18 | W.PN.HOSP.TC ---
Today's Communication/Plan
-
Transferr to ICU here
Consult materials management manager
Transfer to [facility] when ICU bed available
Assessment / Plan
Assessment / Plan
#Septic shock
#Legionella pneumonia
#Acute hypoxic respiratory failure
#Acute toxic metabolic encephalopathy
Flu/covid neg
08/23/2024 blood culture�contaminated
08/24/2024 repeat blood cultures pending
Started on IV doxycycline evening of 08/24/2024 for Legionella pneumonia
Appreciate ID input, antibiotics changed from vancomycin/Zosyn to cefepime/levofloxacin, continue doxycycline
Was on Levophed at 2 mcg, now off. Last lactic acid was 1.7 this morning, continue IV fluids.
Transfer to ICU here, consult materials management manager
Transfer to [facility] when ICU bed available, accepting physician/materials management manager Dr. Eric Martinez
Currently on 6 L of oxygen, wean oxygen as tolerated. Follow fever curve and white count
#History of multiple myeloma
#Severe neutropenia
#Pancytopenia
#Thrombocytopenia
ANC 100 today, reverse precautions
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
Oncology recommends transfer to [facility] where patient's oncology team is located
Hold anticoagulation until platelet count >50
Transfuse for platelets less than 10 or for atypical bleeding, or for hemoglobin less than 7.0
#Acute kidney injury
Due to sepsis, creatinine improving
IV fluids, trend creatinine, no nephrotoxic drugs/NSAIDs
#New onset atrial fibrillation with RVR
Due to sepsis. Unable to tolerate amiodarone in the emergency room
Not a candidate for anticoagulation due to thrombocytopenia
Treat sepsis as above per cardiology
Blood pressure has improved off of Levophed, cardiology ordered metoprolol tartrate 2.5 mg x 1
Rate controlling medications as allowed by blood pressure per cardiology/materials management manager
#Nonischemic myocardial injury
Troponin peaked at 0.126, then down to 0.094
From sepsis, rapid fib
#GERD
Continue Pepcid, added Protonix daily, added Tums/Maalox
#Hypothyroidism
Continue levothyroxine
#BPH
Continue finasteride, alfuzosin
DVT prophylaxis�SCDs secondary to thrombocytopenia
Full code
Updated daughter at bedside 08/24
Updated daughters at bedside and on phone 3 times on 08/25
Discussed with nursing, ID, cardiology, oncology, materials management manager
Total time spent to see the patient on the floor, examine the patient, review data and lab results, discuss treatment plan with patient, nursing staff around 70 minutes.
Physical Exam
General: Appears acutely ill, no acute distress
HEENT: Normocephalic, Atraumatic, EOMI, MMM
Respiratory: Right basilar crackles
Cardiac: Normal S1/S2, irregularly irregular, tachycardic rate
GI: Soft, Nontender, Nondistended, Normal Bowel Sounds
Extremities: No Clubbing, Cyanosis
Neuro: Intermittent confusion
Anticipated Discharge: Within 24 hours
Subjective/Interval History
-
Date of Service: August 25, 2024
Patient reports a dry cough. He denies chest pain, shortness of breath, or palpitations. His fever is improved. Nursing staff reports intermittent confusion.
Objective Data
-
Labs:
Laboratory Results
08/25/24
06:14
WBC 1.8 L*
Hgb 7.9 L
Hct 22.2 L
Plt Count 16 L* D
Sodium 137
Potassium 3.9
Chloride 105
Carbon Dioxide 17 L
BUN 43 H
Creatinine 1.3
Glucose 130 H
Calcium 7.6 L
Vital Signs:
Vital Signs
Temp Pulse Resp BP Pulse Ox
99.2 F 465 12 102/69 95
08/25/24 05:20 08/25/24 05:47 08/25/24 05:47 08/25/24 02:30 08/25/24 05:47
I&O
08/24/24 08/25/24 08/26/24
06:59 06:59 06:59
Intake Total 1500 / 1500 3195 / 3195
Output Total 1575 / 1575 1280 / 1280
Balance -75 / -75 1914
--- NOTE | 2024-08-25 08:18 | CON.ONC ---
Impression
Impression
Legionella pneumonia
Atria flutter/l fibrillation
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
Multiple myeloma previously in remission status post ABMT 2019 on maintenance lenalidomide
Pancytopenia
Hypoxemia
Septic shock
Hypothyroid
GERD
Hyperlipidemia
Plan
Plan
Treatment for Legionella pneumonia as per infectious disease
IgG has been adequate no need for supplementation
ANC on the lenalidomide in the range of 8-900 exacerbated by acute illness
Pathology review of peripheral smear shows 70% atypical plasma cells suggesting possible plasma cell leukemia
Flow cytometry pending
Would hold G-CSF
Consider tertiary transfer to [facility]
Hold anticoagulation until platelet count >50 baseline 150 on lenalidomide sepsis related consumption likely
Reviewed serum protein electrophoresis and kappa lambda light chains with her primary oncologist from 08/12 no significant progression
Pancytopenia with transfusion for platelet count <10 or for atypical bleeding, hemoglobin<7 g/dL
Hemoglobin drop precipitous nearly 6 g since 08/12 monitor for GI bleeding and rule out hemolysis
Patient appears to be improving on doxycycline
Patient History
History of Present Illness
Patient is a 74-year-old male with PHM of hypothyroidism,BPH, hyperlipidemia, and multiple myeloma. Patient presented to [place] ED for evaluation of cough and rapid heart rate. Outpatient pneumonia diagnosis with PCP started azithromycin and
Augmentin for treatment. Patient states he has had chills, sweats, shortness of breath with exertion, nausea and vomiting yesterday, unsure if was febrile at home. Denies any constipation, diarrhea, chest pain, palpitations, or urinary symptoms.
Patient was noted to be tachycardic and hypoxic on home pulse ox. He was brought to the emergency room and was discovered to be in atrial fibrillation. We have been asked to follow the patient with pancytopenia and a history of multiple myeloma
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 Review of microbiology indicates Legionella antigen likely reflecting Legionella pneumonia. Doxycycline has been initiated.
Past-Medical/Surgical History
Past Medical History
hypothyroidism
BPH
hyperlipidemia
multiple myeloma
Past Surgical History
inguinal hernia 2021
Social History
Tobacco: Non-smoker
Alcohol: None
Drug: None
Personal: Single
Living: Alone
Employment: Retired
Family History
Family History: Not pertinent
Patient Medication
�Medication �Instructions �Recorded �Confirmed �Last Taken �Type
aspirin 81 mg tablet,delayed 81 mg PO DAILY Blood Clot 02/26/14 08/23/24 08/22/24 History
release Prevention/Tx
flaxseed 1,000 mg capsule 1,000 mg PO DAILY Supplement 02/27/14 08/23/24 08/22/24 History
lysine 500 mg tablet 500 mg PO DAILY Supplement 02/27/14 08/23/24 08/22/24 History
alfuzosin 10 mg tablet,extended 10 mg PO DAILY bph 07/31/22 08/23/24 08/22/24 History
release 24 hr
calcium 500 mg (as 2 tab PO DAILY Supplement 07/31/22 08/23/24 08/22/24 History
carbonate)-vitamin D3 3.125 mcg
(125 unit) tablet
lenalidomide 15 mg capsule 15 mg PO UD Angiogenesis 07/31/22 08/23/24 07/22/22 History
(Revlimid) Inhibitor; A
levothyroxine 88 mcg tablet 88 mcg PO DAILY Thyroid 07/31/22 08/23/24 08/23/24 History
multivitamin 1 tab PO DAILY Supplement 07/31/22 08/23/24 08/22/24 History
psyllium 1 packet PO DAILY Constipation 07/31/22 08/23/24 08/22/24 History
acetaminophen 650 mg 1,300 mg PO [id number] PRN MILD PAIN 08/23/24 08/23/24 08/23/24 History
tablet,extended release
amoxicillin 875 mg-potassium 1 tab PO BID Infection 08/23/24 08/23/2424 History
clavulanate 125 mg tablet
azithromycin 250 mg tablet 0 mg PO .COMPLEX Infection 08/23/24 08/23/24 08/23/24 History
docusate sodium 100 mg capsule 100 mg PO DAILYPRN PRN CONSTIPATION 08/23/24 08/23/24 Unknown History
(Colace)
famotidine 40 mg tablet (Pepcid) 40 mg PO HS Gastrointestinal Issue 08/23/24 08/23/24 08/22/24 History
finasteride 5 mg tablet 5 mg PO DAILY bph 08/23/24 08/23/24 08/22/24 History
Active Medications
Generic Name Dose Route Start Last Admin
Trade Name Freq PRN Reason Stop Dose Admin
Acetaminophen 650 mg 08/23/24 17:48 08/25/24 05:11
Acetaminophen 325 Mg Tablet PO 09/20/24 17:47 650 mg
Q4HPRN PRN Administration
mild pain/GOULD/temp> 100.4F
Al Hydrox/Mg Hydrox/Simethicone 1 tablet 08/24/24 11:35
Maalox Plus PO 09/21/24 11:34
Q4HPRN PRN
belching
Aspirin 81 mg 08/24/24 08:00 08/24/24 08:26
Aspirin 81 Mg (Enteric Coated) Tablet PO 09/21/24 07:59 81 mg
DAILY SCOTT Administration
Calcium Carbonate 400 mg 08/24/24 11:35
Calcium Antacid 200 Mg (Calcium Carbonate 500 Mg) Chew Tablet PO 09/21/24 11:34
Q4HPRN PRN
dyspepsia/belching
Calcium/Vitamin D 1,000 mg 08/24/24 08:00 08/24/24 08:27
Calcium Carbonate 500 Mg/Vitamin D 5 Mcg (200 Units) Tablet PO 09/21/24 07:59 1,000 mg
DAILY SCOTT Administration
Docusate Sodium 100 mg 08/23/24 17:48
Docusate Sodium 100 Mg Capsule PO 09/20/24 17:47
DAILYPRN PRN
CONSTIPATION
Doxycycline Hyclate 100 mg 08/25/24 08:00
Doxycycline 100 Mg Capsule PO
Q12 SCOTT
Famotidine 20 mg 08/23/24 22:00 08/24/24 21:38
Famotidine 20 Mg Tablet PO 09/20/24 21:59 20 mg
HS SCOTT Administration
Finasteride 5 mg 08/24/24 08:00 08/24/24 08:27
Finasteride 5 Mg Tablet PO 09/21/24 07:59 5 mg
DAILY SCOTT Administration
Guaifenesin/Dextromethorphan 10 ml 08/25/24 05:35
Guaifenesin/Dextromethorphan 200 Mg/10 Ml Cup PO 09/22/24 05:34
Q4HPRN PRN
cough/congestion
Vancomycin HCl 1 each/ Device 0 mls @ 0 mls/hr 08/23/24 18:00
IV
PER PROTOCOL SCOTT
Protocol
As Directed
Piperacillin Sod/Tazobactam Sod 4.5 gram in 100 mls @ 200 mls/hr 08/23/24 22:00 08/25/24 04:52
Zosyn IV 100 mls
Q6H SCOTT Administration
Norepinephrine Bitartrate 4 mg in 250 mls @ 0 mls/hr 08/24/24 06:30 08/24/24 12:17
Levophed IV 250 mls
PER PROTOCOL SCOTT Administration
Protocol
Per Protocol
Sodium Chloride 1,000 mls @ 100 mls/hr 08/24/24 14:45 08/25/24 01:00
Nss IV 1,000 mls
.Q10H SCOTT Administration
Levalbuterol HCl 0.63 mg 08/25/24 05:35 08/25/24 05:44
Levalbuterol 0.63 Mg/3 Ml Ampul INH 0.63 mg
R Q6HPRN PRN Administration
congestion/sob
Protocol
Levothyroxine Sodium 88 mcg 08/24/24 06:00 08/25/24 05:11
Levothyroxine 88 Mcg Tablet PO 09/21/24 05:59 88 mcg
DAILY @ 0600 SCOTT Administration
Pantoprazole Sodium 40 mg 08/24/24 12:00 08/24/24 12:18
Pantoprazole 40 Mg Delayed Release Tablet PO 09/21/24 11:59 40 mg
DAILY SCOTT Administration
Sodium Chloride 0 flush 08/23/24 18:00
Sodium Chloride 0.9% (Flush) Syringe IV 09/20/24 17:59
PER PROTOCOL SCOTT
Tamsulosin HCl 0.4 mg 08/24/24 08:00 08/24/24 08:27
Tamsulosin 0.4 Mg Capsule PO 09/21/24 07:59 0.4 mg
DAILY SCOTT Administration
Review of Systems
-
All Other Systems: Reviewed and Negative
Physical Exam
-
Physical Exam
General: Well Developed, Well Nourished
HEENT: NC, Moist mucous membranes, Atraumatic, EOMI
Respiratory: Clear; No Wheezes, Rales or Rhonchi
Cardiac: S1/S2 and Irregular Rhythm; No Murmur, Rub or Gallop
GI: Soft, Non Tender, Non Distended and Normal Bowel Sounds; No Organomegaly
Musculoskeletal: No Clubbing, No Cyanosis and No Edema
Skin: Warm, Dry
Neuro: Awake, Alert, AO x 3, Nonfocal/grossly intact and Cranial Nerves Intact
Hematologic/Lymphatic: No Lymphadenopathy
Psych: Calm and Intact Judgment/Insight
Labs
Lab Results
WBC 1.8 10^3/uL (4.8-10.8) L* 08/25/24 06:14
RBC 2.43 10^6/uL (4.70-6.10) L 08/25/24 06:14
Hgb 7.9 g/dL (13.0-18.0) L 08/25/24 06:14
Hct 22.2 % (39.0-52.0) L 08/25/24 06:14
MCV 91.4 fL (80.0-94.0) 08/25/24 06:14
MCH 32.5 pg (27.0-31.0) H 08/25/24 06:14
MCHC 35.6 g/dL (33.0-37.0) 08/25/24 06:14
RDW 18.2 % (11.5-14.5) H 08/25/24 06:14
Plt Count 16 10^3/uL (130-400) L* D 08/25/24 06:14
MPV 12.3 fL (7.4-10.4) H 08/25/24 06:14
Creatinine 1.3 mg/dL (0.7-1.3) 08/25/24 06:14
Vital Signs
Vital Signs
Temp Pulse Resp BP Pulse Ox
99.2 F 465 12 102/69 95
08/25/24 05:20 08/25/24 05:47 08/25/24 05:47 08/25/24 02:30 08/25/24 05:47
[2024-08-25] MEDS: OSCAL 500 + D 1000 MG PO (08:52)
[2024-08-25] MEDS: FLOMAX 0.4 MG PO (08:52)
[2024-08-25] MEDS: PROTONIX 40 MG PO (08:52)
[2024-08-25] MEDS: ASPIR LOW (ENTERIC COATED) 81 MG PO (08:52)
[2024-08-25] MEDS: PROSCAR 5 MG PO (08:52)
[2024-08-25] MEDS: MAALOX PLUS 1 TABLET PO (09:17)
[2024-08-25 09:21] LABS: Atypical Lymphocytes 62 %; Band Neutrophils 0 % (0-3); Eosinophils 4 % (0-6); Lymphocytes 22 % (20-51); Monocytes 2 % (2-9); Segmented Neutrophils 10 % (42-75)
[2024-08-25 09:22] LABS: Acanthocytes 1+; Hypochromasia Slight; Normal RBC Morphology No; Platelets Checked Yes; Polychromasia Slight
[2024-08-25 09:23] LABS: Total Cells Counted 100
[2024-08-25 09:24] LABS: Absolute Neutrophils -Man Diff 0.1 10^3/uL (1.4-6.5)
[2024-08-25] MEDS: VIBRAMYCIN 260 MG IV ×2 (09:36→20:27)
--- NOTE | 2024-08-25 10:26 | CON.ID ---
Consultation
-
Date/Time Consultation Requested: 08/24/20242034
Date/Time Consultation Performed: 08/25/2024 0900
Requesting Provider: PAOLA Peterson
Performing Provider: Dr. Layen
Reason for Consultation: Legionella pneumonia
Chief Complaint / Past History
History of Present Illness
Kenneth West is a 74-year-old man being evaluated regarding Legionella pneumonia. History is obtained from chart review, along with patient interview, and history obtained from the patient's daughter who was present at the bedside.
The patient has an underlying history of multiple myeloma (Dx: 2017; Hx stem cell transplant 2019; maintained on Revlimid). He reports he was in his usual state of health until last when he developed a slight cough. That day he was seen
by his PCP for routine checkup, found to be relatively healthy and received a pneumonia vaccine. The next day he developed a headache, and his cough persisted. The next day he still had a cough and now developed some chills. The following day (2
days [employer] he reportedly developed some soaking sweats, and 1 day prior to admission he was again seen by his PCP, felt to have pneumonia and began Azithromycin (Z-Saleem). His daughter was in contact with his oncologist, and the patient was also
started on Augmentin. Later that evening he vomited. On the day of admission his daughter checked in on him and found his pulse ox to be in the 80s. Additionally, a heart monitor device suggested that he was in A-fib and EMS was called and the
patient was brought to the hospital.
Once here, he was found to be neutropenic. Empiric antibiotics were initiated and additional testing was performed. His Legionella urinary antigen was found to be positive, and he has been started on therapy.
At this time he reports feeling slightly improved, and his daughter notes that he looks overall somewhat improved from initial presentation. He continues to have cough, but without significant sputum production.
He lives alone in a house, although his 1 daughter lives next-door. Reportedly a water softening machine recently was serviced. There is a dehumidifier machine which he empties in the basement, but there is no reported standing water around.
Past History
Additional Past Medical History:
Multiple myeloma (Dx: 2017; Hx stem cell transplant 2019; maintained on Revlimid)
BPH
Hypothyroidism
Additional Past Surgical History:
Stem cell transplant
Hernia repair
Allergy History:
No Known Allergies Allergy (Verified 08/04/22 08:20)
Medications Reviewed: Yes
Current Antibiotics:
Vancomycin
Zosyn
Doxycycline
Social History
Tobacco: Non-Smoker
Alcohol: None
Drug: None
Personal: Single
Living: Alone
Employment: Retired
Family History
Family History: Not Pertinent
Review of Systems
Vital Signs
Temp Pulse Resp BP Pulse Ox
99.1 F 166 33 146/89 91
08/25/24 07:03 08/25/24 09:30 08/25/24 09:30 08/25/24 09:30 08/25/24 09:30
Physical Exam
Physical Exam
Constitutional: No Acute Distress, Comfortable, Acutely Ill and Non-toxic
Eyes: No Conjunctival Hemorrhage and Sclera Anicteric
Oral: No Thrush and No Ulcers
Cardiovascular: Irregular Rate and S1/S2; Negative S3/S4
Pulmonary: Rhonchi, Coarse and Other (Mildly labored)
Gastrointestinal: Soft, Non Tender, Non Distended, Normal Bowel Sounds, No Rebound and No Guarding
Extremities: Negative Edema, Cyanosis or Erythema
Musculoskeletal: Negative Joint Swelling
Skin: Warm and Dry; Negative Rash or Jaundice
Neurological: Awake and Alert
Psychological: Calm
Lab / Diagnostic Study Results
08/25/24 06:14
08/25/24 06:14
Total Counted 100 08/25/24 06:14
Abs Neuts (Manual) 0.1 10^3/uL (1.4-6.5) L* 08/25/24 06:14
Segmented Neutrophils 10 % (42-75) L 08/25/24 06:14
Band Neutrophils 0 % (0-3) 08/25/24 06:14
Lymphocytes (Manual) 22 % (20-51) 08/25/24 06:14
Eosinophils (Manual) 4 % (0-6) 08/25/24 06:14
PT 21.1 Sec (11.4-14.6) H 08/24/24 14:38
INR 1.81 08/24/24 14:38
Lactic Acid 1.7 mmol/L (0.7-2.0) 08/25/24 06:14
Microbiology Results
Micro:
08/24/24 17:20 Legionella Urinary Antigen - Final
Urine Positive for L. pneumophila Ag
Streptococcus pneumoniae Antigen (M - Final
Negative for Streptococcus pneumoniae antigen.
A negative result does not exclude infection with
Streptococcus pneumoniae. Clinical correlation is
recommended.
08/23/24 14:20 Blood Culture - Preliminary
Blood/Venous Coagulase neg. staphylococcus
Additional testing on request
Gram Stain - Preliminary
08/24/24 09:33 Nasal Screen MRSA (PCR) - Final
Nose MRSA not detected - performed by PCR methodology.
08/24/24 17:17 Blood Culture - Pending
Blood/Venous
08/23/24 19:20 Urine Culture - Final
Urine NO GROWTH
08/23/24 17:22 Influenza Types A & B (KENDRA) - Final
Nasal Swab Negative for Influenza A & B, NAAT
Negative results must be combined with clinical observations
and patient history.
Nucleic Acid Amplification test (NAAT)performed on the
[employer] Digital platform.
Imaging:
08/24/2024 CXR (portable): Cardiac silhouette and pulmonary vasculature radiographically within normal limits. Interstitial parenchymal airspace disease at the right lung base suggesting pneumonia and has worsened slightly in the interval since the
preceding film. Lungs are otherwise clear. Please see full dictation for additional detail. Film personally viewed.
Assessment / Plan
Legionella pneumonia
Neutropenia (current ANC = 100)
Fever
Multiple myeloma (Dx: 2017; Hx stem cell transplant 2019; maintained on Revlimid)
BPH
Hypothyroidism
Recommendations:
Continue with doxycycline.
Given significant immunosuppression and neutropenia, will initiate additional coverage for Legionella with levofloxacin dosed for renal insufficiency.
D/C further Zosyn and vancomycin.
Begin cefepime for febrile neutropenia
Monitor white count, temperature curve, ANC.
Follow for clinical improvement.
Monitor pending cultures.
Further recommendations as additional data is returned.
Care Review
Plan reviewed with: Physician (Hospitalist)
--- NOTE | 2024-08-25 10:27 | W.PN.CD ---
Addendum entered and electronically signed by Yusra Jacobson MD 08/25/24 12:07:
Off levophed bp has been stable last map 89 with hr 140's to 160;s, will give a small dose of IV bb and assess response.
Original Note:
Today's Communication / Plan
-
stop levophed, assess bp and hr
consider vasopressin
consider digoxin vs amiodarone
elevate level of care
stop aspirin
cct 31 minutes
Impression / Plan
-
Assessment and plan
Atrial flutter/ afib
Immunocompromised. H/o multiple myeloma on maintenance therapy
CHADVASC SCORE 2 but not a candidate for anticoagulation in the setting of thrombocytopenia
septic shock driving up rates and limiting rate control
Currently with HR in the 150-160's, but MAP is 95 on levophed
lets start with stopping levophed
if still elevated can consider digoxin, worst case amiodarone
daughter at the bedside, I explained the risks of Amiodarone given no anticoagulation, but understands will use if no other choice
Nonischemic myocardial injury here in the setting of septic shock.
-no cp and ecg without ischemic change
Septic secondary to pneumonia in the setting of pancytopenia:
-Legionella ag + Abx adjusted
-respiratory status is tenuous.
Pancytopenia: Heme-onc consulted
Patient with history of multiple myeloma
Now concern for plasma cell leukemia
No clear indication for aspirin, so will stop given pancyopenia.
Overall this is a very high risk situation. given the labile vital signs and amount of nursing care would transfer to the ICU.
Subjective:
he is confused but alert, he is denying cp or sbo.
Physical Exam
Vital Signs/Labs
Vital Signs
Temp Pulse Resp BP Pulse Ox
99.1 F 166 33 146/89 91
08/25/24 07:03 08/25/24 09:30 08/25/24 09:30 08/25/24 09:30 08/25/24 09:30
08/24/24 08/25/24 08/26/24
06:59 06:59 06:59
Actual Weight 81.2 kg 83.7 kg
08/25/24 06:14
08/25/24 06:14
PT 21.1 Sec (11.4-14.6) H 08/24/24 14:38
INR 1.81 08/24/24 14:38
APTT 33.8 Sec (23.4-35.0) 08/24/24 14:38
08/23/24
14:20
[id number] Pept 5330
LAB Results
08/23/24 08/24/24 08/24/24
14:20 02:44 02:44
Troponin I 0.096 H* Cancelled 0.126 H*
08/24/24 08/24/24 08/24/24
08:15 08:24 14:15
Troponin I Cancelled 0.107 H* Cancelled
08/24/24 08/24/24 08/24/24
14:38 14:44 20:15
Troponin I 0.094 H* Cancelled Cancelled
08/24/24
20:44
Troponin I Cancelled
Physical Exam
Constitutional: Confusion (alert but confused)
Cardiovascular: Pedal edema is absent, JVD pressure is normal and Rhythm/rate is irregular (tachycardia)
Respiratory: Wheeze Absent, Rhonchi Absent, Crackles Present (diffusely) and Other (increase resp rate)
Neuro/Psych: Alert
Data Reviewed
-
Date of Service: August 25, 2024
Medical Decision Making: Review of Case with other Provider (Dr King at bedside with recommendations, Kristina nursing at the bedside, plan discussed with Daughter Urvashi at the bedside)
[2024-08-25 10:29] LABS: Vancomycin Random 6.6 ug/ml
[2024-08-25] MEDS: ZOSYN IV (11:00)
--- NOTE | 2024-08-25 11:42 | CON.INTV ---
Consultation
Consultation Request
Date/Time Consultation Requested: 08/25/2024 - 111
Date/Time Consultation Performed: 08/25/2024 - 6
Requesting Provider: Dr. King
Performing Provider: Dr. Call
Reason for Consultation: Rapid A-fib
Medical History
-
Chief Complaint: Fast heart rate
History of Present Illness:
74-year-old male non-smoker with a past medical history of multiple myeloma s/p SCT in remission on maintenance lenalidomide, hyperlipidemia, prostate enlargement, hypothyroidism, vitamin D deficiency and right knee osteoarthritis who presents with
fast heart rate at home to the 150�170s. Patient recently saw his PCP, Dr. Marte, on 08/19/2024 and was given a Prevnar 20 vaccine. His lungs were clear to auscultation at that time and was in no acute distress. He then developed URI symptoms
with bodyaches and fever and went back to his PCP on 08/22/2024 and was given Zithromax, albuterol and a chest x-ray was ordered. While the patient was at home he developed A-fib via a home monitor car operator and reportedly the heart rate was in the
150�170s. They then came to the ER for further care, where he was afebrile to 98.7 �F, tachycardic to 134, breathing at 22 breaths/min, hypotensive to 93/57 and saturating 92% on room air. Labs showed leukopenia of 2.6, anemia to 9.7,
thrombocytopenia to 40, ANC was 300, sodium 133, creatinine 1.5, lactate 1.9, troponin 0.096, proBNP 5330, urinalysis negative for signs of UTI and COVID antigen negative. Initial CXR showed concern for right basilar pneumonia. He was started on
cefepime, vancomycin, and started on amiodarone drip. He was admitted to the IMU for further care. He briefly required Levophed on 08/24/2024. Antibiotics were continued with Zosyn/doxycycline. Legionella urinary antigen resulted positive.
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 Unfortunately the patient's thrombocytopenia continue to worsen, and rapid A-fib also progressed with heart rate in the
170�180s. He was transferred to the ICU for further care and block sealer services now consulted for additional management/recommendations.
When I saw the patient, the patient's daughter, Marj, and patient's brother, Kel, were at bedside. All questions were answered. Patient currently feels well, denying chest pain, shortness of breath. He has a slight cough which occurs during
activity. Cough is dry. He is a never smoker. He is oncologist that he follows with his at [place] (Dr. Collins). Given that the patient's oncologist is at [place], they are awaiting transfer there once a bed is available. Currently, the
patient's heart rate is 148, BP 109/86 and he is saturating 94% on 5 L/min nasal cannula. He denies GOULD, abdominal pain, nausea or chills.
PMHx: Multiple myeloma in remission with history of stem cell transplant at [place] (2019), hyperlipidemia, hypothyroidism, enlarged prostate, right knee osteoarthritis, vitamin D insufficiency, history of chickenpox
PShx: Stem cell transplant, bilateral robotic assisted laparoscopic recurrent inguinal hernia surgery
Past Medical History
Past Medical History: Other (Above as per HPI)
Past Surgical History: Other (Above as per HPI)
Social History
Tobacco: Non-smoker
Alcohol: None
Drug: None
Family History
Family History: CAD (Father + maternal grandmother) and Cancer (Mother: Ovarian cancer + breast cancer (BRCA gene); Maternal grandfather (unknown cancer type))
Allergies / Home Medications
Allergies
Allergy/AdvReac Type Severity Reaction Status Date / Time
No Known Allergies Allergy Verified 08/04/22 08:20
Home Medications
�Medication �Instructions �Recorded �Confirmed �Last Taken �Type
aspirin 81 mg tablet,delayed 81 mg PO DAILY Blood Clot 02/26/14 08/23/24 08/22/24 History
release Prevention/Tx
flaxseed 1,000 mg capsule 1,000 mg PO DAILY Supplement 02/27/14 08/23/24 08/22/24 History
lysine 500 mg tablet 500 mg PO DAILY Supplement 02/27/14 08/23/24 08/22/24 History
alfuzosin 10 mg tablet,extended 10 mg PO DAILY bph 07/31/22 08/23/24 08/22/24 History
release 24 hr
calcium 500 mg (as 2 tab PO DAILY Supplement 07/31/22 08/23/24 08/22/24 History
carbonate)-vitamin D3 3.125 mcg
(125 unit) tablet
lenalidomide 15 mg capsule 15 mg PO UD Angiogenesis 07/31/22 08/23/24 07/22/22 History
(Revlimid) Inhibitor; A
levothyroxine 88 mcg tablet 88 mcg PO DAILY Thyroid 07/31/22 08/23/24 08/23/24 History
multivitamin 1 tab PO DAILY Supplement 07/31/22 08/23/24 08/22/24 History
psyllium 1 packet PO DAILY Constipation 07/31/22 08/23/24 08/22/24 History
acetaminophen 650 mg 1,300 mg PO [id number] PRN MILD PAIN 08/23/24 08/23/24 08/23/24 History
tablet,extended release
amoxicillin 875 mg-potassium 1 tab PO BID Infection 08/23/24 08/23/24 08/23/24 History
clavulanate 125 mg tablet
azithromycin 250 mg tablet 0 mg PO .COMPLEX Infection 08/23/24 08/23/24 08/23/24 History
docusate sodium 100 mg capsule 100 mg PO DAILYPRN PRN CONSTIPATION 08/23/24 08/23/24 Unknown History
(Colace)
famotidine 40 mg tablet (Pepcid) 40 mg PO HS Gastrointestinal Issue 08/23/24 08/23/24 08/22/24 History
finasteride 5 mg tablet 5 mg PO DAILY bph 08/23/24 08/23/24 08/22/24 History
Review of Systems
-
History Source: Patient
All other systems: Negative unless noted
Vitals / Labs / Diagnostic Testing
Vital Signs
Temp Pulse Resp BP Pulse Ox
98.4 F 166 33 146/89 91
08/25/24 10:15 08/25/24 09:30 08/25/24 09:30 08/25/24 09:30 08/25/24 09:30
Lab Data
08/25/24 06:14
08/25/24 06:14
Laboratory Results
08/24/24
14:38
PT 21.1 H
INR 1.81
APTT 33.8
Microbiology
08/24/24 17:20 Urine Legionella Urinary Antigen - Final
Positive for L. pneumophila Ag
08/24/24 17:20 Urine Streptococcus pneumoniae Antigen (M - Final
Negative for Streptococcus pneumoniae antigen.
A negative result does not exclude infection with
Streptococcus pneumoniae. Clinical correlation is
recommended.
08/23/24 14:20 Blood/Venous Blood Culture - Preliminary
Coagulase neg. staphylococcus
Additional testing on request
08/23/24 14:20 Blood/Venous Gram Stain - Preliminary
08/24/24 09:33 Nose Nasal Screen MRSA (PCR) - Final
MRSA not detected - performed by PCR methodology.
08/23/24 19:20 Urine Urine Culture - Final
NO GROWTH
08/23/24 17:22 Nasal Swab Influenza Types A & B (KENDRA) - Final
Negative for Influenza A & B, NAAT
Negative results must be combined with clinical observations
and patient history.
Nucleic Acid Amplification test (NAAT)performed on the
[employer] platform.
Diagnostic Testing:
Physical Exam
-
HEENT: Normocephalic and Anicteric
Cardiovascular: Irregular Rhythm (Irregularly irregular), Peripheral Edema (negative) and Other (Tachycardic)
Respiratory: Wheeze (negative), Rales (Left base), Rhonchi (Left base) and Accessory Resp Muscle Use (negative)
GI: Soft, Non Distended, Non Tender and Normal Bowel Sounds
Neurology: AO x 3 and Tremors (negative)
Skin: Warm and Dry
General: Respiratory Distress (negative), Comfortable, Chills (negative) and Sweats (negative)
Assessment
-
Assessment: 74-year-old male non-smoker with a past medical history of multiple myeloma s/p SCT in remission on maintenance lenalidomide, hyperlipidemia, prostate enlargement, hypothyroidism, vitamin D deficiency and right knee osteoarthritis who
presents with fast heart rate at home to the 150�170s. Patient recently saw his PCP, Dr. Marte, on 08/19/2024 and was given a Prevnar 20 vaccine. His lungs were clear to auscultation at that time and was in no acute distress. He then
developed URI symptoms with bodyaches and fever and went back to his PCP on 08/22/2024 and was given Zithromax, albuterol and a chest x-ray was ordered. While the patient was at home he developed A-fib via a home monitor car operator and reportedly the
heart rate was in the 150�170s. They then came to the ER for further care, where he was afebrile to 98.7 �F, tachycardic to 134, breathing at 22 breaths/min, hypotensive to 93/57 and saturating 92% on room air. Labs showed leukopenia of 2.6,
anemia to 9.7, thrombocytopenia to 40, ANC was 300, sodium 133, creatinine 1.5, lactate 1.9, troponin 0.096, proBNP 5330, urinalysis negative for signs of UTI and COVID antigen negative. Initial CXR showed concern for right basilar pneumonia. He
was started on cefepime, vancomycin, and started on amiodarone drip. He was admitted to the IMU for further care. He briefly required Levophed on 08/24/2024. Antibiotics were continued with Zosyn/doxycycline. Legionella urinary antigen resulted
positive. 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 Unfortunately the patient's thrombocytopenia continue to worsen, and rapid A-fib also progressed with heart rate
in the 170�180s. He was transferred to the ICU for further care and block sealer services now consulted for additional management/recommendations.
Chronic conditions MEDICAL INSURANCE CLAIMS SPECIALIST: Multiple myeloma in remission with history of stem cell transplant at [place] (2019), hyperlipidemia, hypothyroidism, enlarged prostate, right knee osteoarthritis, vitamin D insufficiency, history of chickenpox
Impression:
#Atrial fibrillation with RVR (new onset) with hypotension
#Legionella pneumonia
#Sepsis without shock due to above
#Febrile neutropenia
#Acute respiratory failure with hypoxia on supplemental oxygen
#Thrombocytopenia likely due to leukemia in setting of sepsis
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
#Pancytopenia
#Metabolic acidosis with normal anion gap
#Elevated troponin (peaked at 0.126 on 08/24/2024)
Plan:
- Continue with antibiotics as per ID --> currently on cefepime + levaquin
- Rate control; cardiology on board, recommendations appreciated
- Goal HR<110
- Replete K>4, Mg>2
- Patient's echo on 08/24/2024 shows preserved LV systolic function with LVEF 55 to 60% and no significant valvular abnormalities. As long as BP is adequate, would give BB versus CCB
- Start metoprolol 25mg BID, and can up-titrate as tolerated, while maintaining MAP>65
- Consider dig vs amiodarone if further rate control is needed --> the pt runs the risk of RISSA-clot embolization with amiodarone, hence would use BB vs CCB and/or digoxin first before using amio; the truth is that with this patient's degree of
thrombocytopenia, there is little chance that a thrombus would even form, so I believe the risk of amiodarone gtt and clot embolization is minimal, however the risk is not zero
- Hematology/oncology on board and peripheral blood flow cytometry is pending to help diagnose plasma cell leukemia
- Maintain SpO2 >90-94% with supplemental O2 and wean as tolerated
- Maintain MAP>65
- Trend sHCO3 level and check VBG to assess pH and pCO2
- Replete electrolytes with K>4, Mg>2
- Maintain euglycemia with goal BG 140-180
- Trend H/H and transfuse if needed to keep Hb>7g/dL; keep plt>10-20k
- prn nebulized bronchodilators - not currently bronchospastic
- Incentive spirometer encouraged
- DVT ppx: SCDs
Patient is awaiting transfer to [facility] for further care. He will be transferred to the ICU here at for further care while awaiting bed availability. Patient is critically ill with tachyarrhythmia and hypoxia with high
likelihood for further clinical deterioration. Continue with ICU level care. Low threshold to intubate.
Critical care statement: A total of 41 minutes of critical care time was provided for this patient today. This includes management of unstable vital signs, evaluation of the patient at bedside, reviewing the patient's pertinent medical records
including radiographs, microbiology, laboratory evaluations, and discussion with primary team, consultants, pharmacy, nutrition, physical therapy, case management, charge nurse, critical care nursing, and respiratory therapy.
Data:
CXR 08/25/2024:
1. Bibasilar airspace consolidation, most suggestive of bibasilar pneumonia or subsegmental atelectasis.
2. No large pleural effusion on either side.
--- NOTE | 2024-08-25 11:44 | PTCARENOTE ---
Assumed care of patient at beginning of this shift from previous RN with levophed infusing at 2mcg/min; cannot verifyi accuracy of vital signs prior to 0700. Able to titrate to 1mcg/min then wean to off. HR remains 140s-170s. Patient seen by Dr King,
Dr Layne and Dr Jacobson and Dr Riley. BP 108/77, MAP 89. Initially patient was on 4l n/l; titrated up to current 6l n/c for POx 88%. Currently 91% on 6l n/c. +BARRAGAN, even very minimal exertion. Lungs very diminished t/o; shallow with crackles
noted 1/3 posteriorly. Ox3 but restless; occasional confusion, but able to be reoriented. Frequent wound care physician cough. Plan reported to this nurse is to transfer patient to ICU with plan to transfer to [place]. Daughters updated by physicians.
--- NOTE | 2024-08-25 11:50 | W.PN.UPDATE ---
Update Note
Progress Note Update
Patient has been accepted for transfer to [facility] for further management as his oncology team, Dr. Hazel and Dr. Solano are there, and his peripheral smear is concerning for possible plasma cell leukemia.
Road Design Engineer Dr. Juan Reyes is accepting physician.
Transfer to [place] when [place] ICU bed is available.
[2024-08-25] MEDS: LOPRESSOR 2.5 MG IV (12:25)
[2024-08-25 12:42] LABS: Magnesium 1.9 mg/dl (1.6-2.3)
[2024-08-25] MEDS: MAXIPIME 2000 MG IV ×2 (13:32→23:22)
[2024-08-25] MEDS: STERILE WATER FOR INJECTION 10 ML IV ×2 (13:32→23:18)
[2024-08-25] MEDS: LEVAQUIN 150 IV (13:33)
[2024-08-25] MEDS: CARDIZEM 5 MG IV (14:28)
--- NOTE | 2024-08-25 14:47 | CM ---
Addendum entered by Adele Schulz RN 08/25/24 15:15:
Clarified with Dr King that patient will be going to [facility] in [facility]. Faxed transfer pickup form with the address to ICU Senior Php Software Developer.
Original Note:
Patient with Hx multiple myeloma with Dx septic shock, Legionella PNA, Acute hypoxic respiratory failure, TME, pancytopenia. O2 increased 6L. Receiving IV Abx, weaned off Levophed. Transferred to ICU today with plan transfer to [facility]
when ICU bed available.
Plan transfer [facility] when ICU bed is available.
[2024-08-25] MEDS: LOPRESSOR 25 MG PO (15:18)
--- NOTE | 2024-08-25 15:46 | PTCARENOTE ---
received pt from IMU , pt alert and oriented, restless, Afib with RVR on cardiac technician , on 6L NC with sats of 96% , non productive cough , lungs diminished with crackles throughout , abdominal is soft non tender , poor appetite , skin is intact ,
capillary refill < 2, lindy urine , pt having increasing HR since transfer , his HR up to 150-160 , he was seen by export coordinator , Cardizem 5mg IV given at 1430 , HR down to 130s BP adequate , he was then given 25mg po Metoprolol at 1518 for rate
control , his family is at bedside and were updated by Dr Lyles , plan for pt to be transferred to [facility] for treatment awaiting for hospital bed .
--- NOTE | 2024-08-25 16:21 | PTCARENOTE ---
family bedside, VS noted. Tolerating 6l nc, sats 93%, some BARRAGAN, talkative, awaiting transfer to [place] when bed available.
--- NOTE | 2024-08-25 19:00 | PTCARENOTE ---
1700 Confusion, hallucinating, calm. redirectable.
1830 voided lindy, smear BM. HR range now 150-160 range, occas bursts afib into 190. BP noted. Dr. Call notified, orders pending, discussing cardizem, family remains bedside. confusion remains, family reports is worsening. Skin warm, dry.
Tylenol given for overall aching, mild discomfort.
[2024-08-25] MEDS: LOPRESSOR PO (19:55)
[2024-08-25] MEDS: CARDIZEM 125 IV (20:10)
--- NOTE | 2024-08-25 21:36 | PTCARENOTE ---
Received patient AAOx2, oriented to self and time. Patient knew he was in the hospital. Family at bedside reporting patient is hallucinating and becoming more agitated/seeing things that are scaring him, DIRECTOR DATA MANAGEMENT notified. Patient forgetful, confused at
times. Follows commands, denies pain. In afib, sustaining 170s. Around 1900 patient was in the 180s-200s. Labetalol held for BP, started on cardizem drip. Heart rate now 140s-150s, BP 100s-120s/70s-80s. Normothermic, no edema. Palpable radial and
pedal pulses b/l, weak pedal pulses. On 6 liters nasal cannula, lung sounds coarse and rhonchi throughout. Tachypneic to the 40s, dyspneic at rest. Poor appetite, positive bowel sounds. Urinal to void. Blister on right flank, foam CDI. NSS @ 100
ml/hr per order, cardizem gtt ongoing per order. Call quintero within reach.
[2024-08-25] MEDS: PEPCID 20 MG PO (21:46)
[2024-08-25] MEDS: MELATONIN 5 MG PO (21:46)
[2024-08-26] VITALS (33 sets, daily range): BP systolic 73–141; BP diastolic 34–109; BMI 29.0
--- NOTE | 2024-08-26 00:27 | PTCARENOTE ---
Tylenol given for back pain, otherwise patient assessment unchanged from previous. Family ay bedside, call quintero within reach.
--- NOTE | 2024-08-26 05:38 | PTCARENOTE ---
Patient increasingly confused and forgetful, reoriented, leads replaced. Repositioned, blanket given. Otherwise patient assessment unchanged from previous.
[2024-08-26] MEDS: SYNTHROID 88 MCG PO (05:40)
[2024-08-26 05:58] LABS: Venous Blood Gas B.E. -6.4 mmol/L (-4 to +4); Venous Blood Gas HCO3 19.1 mmol/L (22-27); Venous Blood Gas O2 Sat % 97.4 %; Venous Blood Gas pCO2 37 mmHg (35-48); Venous Blood Gas pH 7.32 (7.32-7.43); Venous Blood Gas pO2 75 mmHg (30-50)
[2024-08-26 06:12] LABS: Hematocrit 24.1 % (39.0-52.0); Hemoglobin 8.3 g/dL (13.0-18.0); Mean Corp Hgb Conc. 34.4 g/dL (33.0-37.0); Mean Corpuscular Hgb 32.3 pg (27.0-31.0); Mean Corpuscular Volume 93.8 fL (80.0-94.0); Mean Platelet Volume 11.7 fL (7.4-10.4); Platelet Count 20 10^3/uL (130-400); Red Blood Cell Count 2.57 10^6/uL (4.70-6.10); Red Cell Dist. Width 18.3 % (11.5-14.5); White Blood Cell Count 0.7 10^3/uL (4.8-10.8)
[2024-08-26 06:30] LABS: NT-proBNP 6610 pg/ml
[2024-08-26] MEDS: NSS 1000 IV (06:43)
[2024-08-26] MEDS: XOPENEX 0.63 MG INHALANT SOLUTION INH ×2 (07:17→13:04)
[2024-08-26 07:40] LABS: ALT (SGPT) 28 U/L (0-50); AST (SGOT) 31 U/L (17-59); Albumin 2.5 g/dl (3.5-5.0); Alkaline Phosphatase 51 U/L (38-126); Blood Urea Nitrogen 48 mg/dl (9-20); Carbon Dioxide 19 mmol/L (22-30); Chloride 107 mmol/L (98-107); Direct Bilirubin 3.9 mg/dl (0.0-0.4); Estimated Creatinine Clearance 43 ml/min; Glucose 136 mg/dl (70-99); Magnesium 2.1 mg/dl (1.6-2.3); Phosphorus 3.7 mg/dl (2.5-4.5); Sodium 141 mmol/L (135-145); Total Protein 4.9 g/dl (6.3-8.2); eGFR 52.09
[2024-08-26] MEDS: PROSCAR 5 MG PO (08:04)
[2024-08-26] MEDS: FLOMAX 0.4 MG PO (08:04)
[2024-08-26] MEDS: CARDIZEM 125 IV (08:04)
[2024-08-26] MEDS: PROTONIX 40 MG PO (08:04)
--- NOTE | 2024-08-26 08:16 | W.PN.INTV ---
Today's Communication / Plan
Recommendations
Transition to comfort care
Stop all medications unless tailored for comfort
Morphine, Ativan + glycopyrrolate
Emotional support provided
Sign off, please call back if there are any additional questions or concerns.
Assessment
-
Assessment: 74-year-old male non-smoker with a past medical history of multiple myeloma s/p SCT in remission on maintenance lenalidomide, hyperlipidemia, prostate enlargement, hypothyroidism, vitamin D deficiency and right knee osteoarthritis who
presents with fast heart rate at home to the 150�170s. Patient recently saw his PCP, Dr. Marte, on 08/19/2024 and was given a Prevnar 20 vaccine. His lungs were clear to auscultation at that time and was in no acute distress. He then
developed URI symptoms with bodyaches and fever and went back to his PCP on 08/22/2024 and was given Zithromax, albuterol and a chest x-ray was ordered. While the patient was at home he developed A-fib via a home cafeteria monitor and reportedly the
heart rate was in the 150�170s. They then came to the ER for further care, where he was afebrile to 98.7 �F, tachycardic to 134, breathing at 22 breaths/min, hypotensive to 93/57 and saturating 92% on room air. Labs showed leukopenia of 2.6,
anemia to 9.7, thrombocytopenia to 40, ANC was 300, sodium 133, creatinine 1.5, lactate 1.9, troponin 0.096, proBNP 5330, urinalysis negative for signs of UTI and COVID antigen negative. Initial CXR showed concern for right basilar pneumonia. He
was started on cefepime, vancomycin, and started on amiodarone drip. He was admitted to the IMU for further care. He briefly required Levophed on 08/24/2024. Antibiotics were continued with Zosyn/doxycycline. Legionella urinary antigen resulted
positive. 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 Unfortunately the patient's thrombocytopenia continue to worsen, and rapid A-fib also progressed with heart rate
in the 170�180s. He was transferred to the ICU for further care and hydroelectric production manager services now consulted for additional management/recommendations.
Chronic conditions SPEECH/LANGUAGE THERAPIST: Multiple myeloma in remission with history of stem cell transplant at [place] (2019), hyperlipidemia, hypothyroidism, enlarged prostate, right knee osteoarthritis, vitamin D insufficiency, history of chickenpox
Impression:
#Atrial fibrillation with RVR (new onset) with hypotension now sinus tachycardia
#Legionella pneumonia
#Septic shock due to above
#Febrile neutropenia
#Acute respiratory failure with hypoxia on supplemental oxygen
#Thrombocytopenia likely due to leukemia in setting of sepsis
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
#Pancytopenia
#Metabolic acidosis with normal anion gap
#Elevated troponin (peaked at 0.126 on 08/24/2024)
Plan:
- This morning patient was given Lasix and developed respiratory distress while on IV fluids for sepsis, and became hypotensive with need for vasopressors and was started on BiPAP
- Family discussion held and they want to transition to comfort care/hospice
- Stop all medications unless tailored for comfort
- Start morphine drip, continue with anxiolytics with Ativan for anxiety/agitation and glycopyrrolate for excessive secretions
- Emotional support provided to the family
- Pipe And Boiler Covers Supervisor offered
- Cancel transfer to [facility]
No additional recommendations at this time. Certified Surgical First Assistant/Pulmonary service will now sign off. Thank you for allowing us to be involved in the care of this patient. Please call back if there are any additional questions or concerns.
Total time spent today was 42 minutes for this encounter. Time includes reviewing laboratory test/imaging results, reviewing pertinent medical records, obtaining and reviewing medical history, performing an appropriate exam, ordering medications,
tests and procedures. Time also includes documentation of this encounter, coordinating patient care and communicating with other healthcare professionals. Total time does not include separately billed tests performed on this date of service.
Data:
CXR 08/25/2024:
1. Bibasilar airspace consolidation, most suggestive of bibasilar pneumonia or subsegmental atelectasis.
2. No large pleural effusion on either side.
Subjective Dataa
Subjective Data
Date of Service:
Date of Service: August 26, 2024
Chief Complaint: Certified Surgical First Assistant Follow Up
Subjective:
Seen and evaluated this morning. Hypoxic this morning to the 70s on 6L/min, O2 changed to 8L/min midflow. On cardizem gtt now at 15mg/hr. Heart rate 125, BP 110/76, saturating 93%. Family deciding/discussing if patient should be transition to
comfort care.
Review of Systems
General: Other (Unable to obtain given patient's acute clinical status/agitation/respiratory distress)
Objective Data
Data Reviewed
Vital Signs / I&O / Oxygen:
Vital Signs
Temp Pulse Resp BP Pulse Ox
98.1 F 124 16 108/78 94
08/25/24 23:21 08/26/24 08:29 08/26/24 07:28 08/26/24 08:29 08/26/24 07:28
Intake and Output
08/25/24 08/26/24 08/27/24
06:59 06:59 06:59
Intake Total 3195 / 3195 2661 / 2673 175 / 175
Output Total 1280 / 1280 1275 / 1275 350 / 350
Balance 1915 / 1915 1386 / 1398 -175 / -175
SaO2 94
Nasal Cannula flow liters per 5
minute
Physical Exam
General: Respiratory Distress (negative), Chills (negative) and Sweats (negative)
HEENT: Normocephalic and Anicteric
Cardiovascular: S1-S2, Peripheral Edema (negative) and Other (Tachycardic)
Respiratory: Wheeze (negative), Crackles (Bilaterally), Rhonchi (negative) and Accessory Resp Muscle Use (positive)
GI: Soft, Non Distended, Non Tender and Normal Bowel Sounds
Neurology: Awake and Other (confused/agitated)
Skin: Warm, Dry, Cyanosis (negative) and Jaundice (negative)
Labs/Micro/Reports
Lab Data
08/26/24 05:47
08/26/24 05:47
Microbiology
08/24/24 17:17 Blood/Venous Blood Culture - Preliminary
No Growth in 24 hours- Final report to follow
08/24/24 17:20 Urine Legionella Urinary Antigen - Final
Positive for L. pneumophila Ag
08/24/24 17:20 Urine Streptococcus pneumoniae Antigen (M - Final
Negative for Streptococcus pneumoniae antigen.
A negative result does not exclude infection with
Streptococcus pneumoniae. Clinical correlation is
recommended.
08/23/24 14:20 Blood/Venous Blood Culture - Preliminary
Coagulase neg. staphylococcus
Additional testing on request
08/23/24 14:20 Blood/Venous Gram Stain - Preliminary
08/24/24 09:33 Nose Nasal Screen MRSA (PCR) - Final
MRSA not detected - performed by PCR methodology.
08/23/24 19:20 Urine Urine Culture - Final
NO GROWTH
08/23/24 17:22 Nasal Swab Influenza Types A & B (KENDRA) - Final
Negative for Influenza A & B, NAAT
Negative results must be combined with clinical observations
and patient history.
Nucleic Acid Amplification test (NAAT)performed on the
[employer] platform.
[2024-08-26 08:21] LABS: Atypical Lymphocytes 28 %; Band Neutrophils 0 % (0-3); Eosinophils 4 % (0-6); Lymphocytes 11 % (20-51); Monocytes 3 % (2-9); Platelets Checked Yes; Segmented Neutrophils 54 % (42-75)
[2024-08-26 08:22] LABS: Acanthocytes Slight; Anisocytosis Slight; Normal RBC Morphology No; Total Cells Counted 100
[2024-08-26 08:23] LABS: Absolute Neutrophils -Man Diff 0.3 10^3/uL (1.4-6.5)
[2024-08-26] MEDS: LASIX 40 MG IV ×2 (08:29→13:05)
[2024-08-26] MEDS: LOPRESSOR 25 MG PO ×2 (08:29→12:40)
[2024-08-26] MEDS: VIBRAMYCIN 260 MG IV (08:30)
--- NOTE | 2024-08-26 09:54 | PTCARENOTE ---
Addendum entered by Arjun Manning RN 08/26/24 10:23:
Crackles also noted in b/l bases upon auscultation of lungs.
Original Note:
Assumed care of pt from production supervisor off shift RN. AAOx3. Confused at times. Easily reoriented. Continues in A.fib on cardiac specialist with HRs 120s-140s. Cardizem gtt at 12mg/hr. Goal HR <120 bpm. Titrated Cardizem gtt to 13mg/hr per order. Pt tachypneic and
SpO2 70% on 6L nasal cannula. Moist non-productive cough noted. Lungs coarse & + rhonchi throughout. RT called to bedside for prn Xopenex. Placed on 8L midflow by RT after, SpO2 now 94% on 10L midflow. Pt weight up 3kg from yesterday. Stacker Driver
and cardiology notified. IVF placed on hold and one time does 40mg IV lasix ordered. Portable CXR ordered. Cardiology at bedside. Increased Cardizem gtt to 15mg/hr per box coverer hand recommendation. HRs currently 80-90s. BP 139/85. Pt resting in bed,
call quintero in reach. Daughter at bedside.
--- NOTE | 2024-08-26 10:08 | W.PN.CD ---
Today's Communication / Plan
-
increase diltiazem gtt
assess response to diuresis
monitor bp
ongoing treatment of sepsis
Impression / Plan
-
Assessment and plan
Atrial flutter/ afib
Immunocompromised. H/o multiple myeloma on maintenance therapy
CHADVASC SCORE 2 but not a candidate for anticoagulation in the setting of thrombocytopenia
sepsis driving up rates and limiting rate control
BP has improved, off vasopressors, now on diltiazem gtt and bb po, rates still to high will increase lyla gtt to 15.
Volume overload:
-in the setting of appropriate volume resuscitation with septic shock and afib with rvr
-given IV 40mg lasix
-needs intensive monitoring of bp with diuresis
Nonischemic myocardial injury here in the setting of septic shock.
-no cp and ecg without ischemic change
Septic secondary to pneumonia in the setting of pancytopenia:
-Legionella ag + Abx adjusted
-respiratory status is tenuous.
Pancytopenia: Heme-onc consulted
Patient with history of multiple myeloma
Now concern for plasma cell leukemia
No clear indication for aspirin, so will stop given pancyopenia.
Await transfer to [facility] where his onc care is focused/
CCT 31 minutes
Subjective:
he is confused but alert, he appears more sob.
Physical Exam
Vital Signs/Labs
Vital Signs
Temp Pulse Resp BP Pulse Ox
98.1 F 124 16 108/78 93
08/25/24 23:21 08/26/24 08:29 08/26/24 07:28 08/26/24 08:29 08/26/24 09:48
08/25/24 08/26/24 08/27/24
06:59 06:59 06:59
Actual Weight 83.7 kg 86.5 kg
10/25/24 05:47
08/26/24 05:47
PT 21.1 Sec (11.4-14.6) H 08/24/24 14:38
INR 1.81 08/24/24 14:38
APTT 33.8 Sec (23.4-35.0) 08/24/24 14:38
Magnesium 2.1 mg/dl (1.6-2.3) 08/26/24 05:47
08/23/24 08/26/24
14:20 05:47
Tds-D-Zhdekanazsu Pept 5330 6610
LAB Results
08/23/24 08/24/24 08/24/24
14:20 02:44 02:44
Troponin I 0.096 H* Cancelled 0.126 H*
08/24/24 08/24/24 08/24/24
08:15 08:24 14:15
Troponin I Cancelled 0.107 H* Cancelled
08/24/24 08/24/24 08/24/24
14:38 14:44 20:15
Troponin I 0.094 H* Cancelled Cancelled
08/24/24
20:44
Troponin I Cancelled
Physical Exam
Constitutional: No acute distress
Cardiovascular: Pedal edema is absent and JVD present (10cm H20)
Respiratory: Lungs clear to auscul., Wheeze Absent, Rhonchi Absent and Crackles Present (bilaterally 1/2 up)
Neuro/Psych: AO x 3
Data Reviewed
-
Date of Service: August 26, 2024
EKG: Other (fib with rvr 100-140's)
--- NOTE | 2024-08-26 11:34 | W.PN.ID1 ---
Date of Service
Date of Service: August 26, 2024
Today's Communication
Continue antibiotics
Assessment / Plan
Legionella pneumonia
Neutropenia (current ANC = 100)
Fever
Multiple myeloma (Dx: 2017; Hx stem cell transplant 2019; maintained on Revlimid)
BPH
Hypothyroidism
Recommendations:
Continue with doxycycline.
Given significant immunosuppression and neutropenia, continue additional coverage for Legionella with levofloxacin dosed for renal insufficiency.
Continue cefepime for febrile neutropenia for today, although if temperatures improve, will narrow to just Levaquin and doxycycline.
Monitor white count, temperature curve, ANC.
Follow for clinical improvement.
Monitor pending cultures.
Further recommendations as additional data is returned.
Await tentative transfer to [facility] once bed is available.
Patient remains critically ill in intensive care unit. Given significant comorbidities, prognosis is guarded.
����������������������������������������������������������
Chief Complaint
-: Pneumonia (Legionella) and Other (Febrile neutropenia)
Subjective / Review of Systems
Patient seen and examined. Family has noted some confusion, but notes the patient has not slept in several days. Overall temp curve improved.
Vital Signs / Physical Exam
Vital Signs
Vital Signs
Temp Pulse Resp BP Pulse Ox
98.1 F 124 16 108/78 93
08/25/24 23:21 08/26/24 08:29 08/26/24 07:28 08/26/24 08:29 08/26/24 09:48
Physical Exam
Constitutional: Acutely Ill and Non-toxic
Eyes: No Conjunctival Hemorrhage and Sclera Anicteric
Cardiovascular: S1/S2; Negative S3/S4
Pulmonary: Rhonchi (Scattered) and Coarse
Gastrointestinal: Soft, Non Tender, Non Distended and Normal Bowel Sounds
Extremities: Negative Edema, Cyanosis or Erythema
Skin: Warm and Dry; Negative Rash or Jaundice
Neurological: Awake
Psychological: Confused
Objective Data
Lab Data
Lab Results
08/26/24 05:47
08/26/24 05:47
PT 21.1 Sec (11.4-14.6) H 08/24/24 14:38
INR 1.81 08/24/24 14:38
APTT 33.8 Sec (23.4-35.0) 08/24/24 14:38
Estimated Creat Clear 43 ml/min 08/26/24 05:47
Lactic Acid 1.7 mmol/L (0.7-2.0) 08/25/24 06:14
Total Bilirubin 5.0 mg/dl (0.2-1.3) H 08/26/24 05:47
AST 31 U/L (17-59) 08/26/24 05:47
ALT 28 U/L (0-50) 08/26/24 05:47
Alkaline Phosphatase 51 U/L (38-126) 08/26/24 05:47
Most recent labs reviewed.
Chest X-Ray: Image Reviewed and Report Reviewed
Micro Results:
08/24/24 17:17 Blood Culture - Preliminary
Blood/Venous No Growth in 24 hours- Final report to follow
08/24/24 17:20 Legionella Urinary Antigen - Final
Urine Positive for L. pneumophila Ag
Streptococcus pneumoniae Antigen (M - Final
Negative for Streptococcus pneumoniae antigen.
A negative result does not exclude infection with
Streptococcus pneumoniae. Clinical correlation is
recommended.
08/23/24 14:20 Blood Culture - Preliminary
Blood/Venous Coagulase neg. staphylococcus
Additional testing on request
Gram Stain - Preliminary
08/24/24 09:33 Nasal Screen MRSA (PCR) - Final
Nose MRSA not detected - performed by PCR methodology.
08/23/24 19:20 Urine Culture - Final
Urine NO GROWTH
08/23/24 17:22 Influenza Types A & B (KENDRA) - Final
Nasal Swab Negative for Influenza A & B, NAAT
Negative results must be combined with clinical observations
and patient history.
Nucleic Acid Amplification test (NAAT)performed on the
Drive platform.
Imaging:
08/24/2024 CXR (portable): Cardiac silhouette and pulmonary vasculature radiographically within normal limits. Interstitial parenchymal airspace disease at the right lung base suggesting pneumonia and has worsened slightly in the interval since the
preceding film. Lungs are otherwise clear. Please see full dictation for additional detail. Film personally viewed.
Care Review
Plan reviewed with: Physician (Critical Care)
--- NOTE | 2024-08-26 12:23 | W.PN.ONC2 ---
Today's Communication / Plan
-
daily CBC with differential
f/u peripheral flow
abx per ID
neutropenic precautions
transfuse Hgb <7 or as needed for sxs anemia
transfuse platelet <20 if bleeding <50 prn
check DIC panel
check TLS panel
check hemoysis panel
addendum 08/26/2024 250pm - peripheral flow B lymphoblastic leukemia/lymphoma discussed with pt daughter, Urvashi via phone, she would like to opt for hospice. Consult placed.
Impression
Impression
Legionella pneumonia
Atria flutter/l fibrillation
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
Multiple myeloma previously in remission status post ABMT 2019 on maintenance lenalidomide
Pancytopenia
Hypoxemia
Septic shock
Hypothyroid
GERD
Hyperlipidemia
Plan
Plan
Treatment for Legionella pneumonia as per infectious disease
IgG has been adequate no need for supplementation
Pathology review of peripheral smear shows 70% atypical plasma cells suggesting possible plasma cell leukemia
Flow cytometry pending
Awaiting transfer to [place]
avoid anticoagulation, antiplatelet, and nsaids with platelet count < 50,000
Reviewed serum protein electrophoresis and kappa lambda light chains with her primary oncologist from 08/12 no significant progression
atrial fibrillation management per cardiologydaily CBC with differential
neutropenic precautions, hold GCSF for now
transfuse Hgb <7 or as needed for sxs anemia
transfuse platelet <20 if bleeding <50 prn
check DIC panel
check TLS panel
check hemolysis panel
>50% of visit was spent on education, counseling and coordination of care - 22min
Subjective/Objective
Subjective
restless
2 daughters at bedside report pt has been hallucinating and has not slept in 4 days.
Vital Signs:
Vital Signs
Temp Pulse Resp BP Pulse Ox
98.1 F 124 16 108/78 93
08/25/24 23:21 08/26/24 08:29 08/26/24 07:28 08/26/24 08:29 08/26/24 09:48
Lab Results:
Laboratory Data
WBC 0.7 10^3/uL (4.8-10.8) L* 08/26/24 05:47
Hgb 8.3 g/dL (13.0-18.0) L 08/26/24 05:47
Plt Count 20 10^3/uL (130-400) L* D 08/26/24 05:47
PT 21.1 Sec (11.4-14.6) H 08/24/24 14:38
INR 1.81 08/24/24 14:38
APTT 33.8 Sec (23.4-35.0) 08/24/24 14:38
eGFR 52.09 08/26/24 05:47
Physical Exam
HEENT: Moist Mucous Membranes; No Jaundice
Cardiology: S2 and Irregular rate/rhythm
Pulmonary: Rhonchi (scattered) and Other (diminished)
GI: Soft
Extremities: No Edema
Neuro: Other (restless)
[2024-08-26] MEDS: MAXIPIME 2000 MG IV (12:36)
[2024-08-26] MEDS: STERILE WATER FOR INJECTION 10 ML IV (12:37)
[2024-08-26] MEDS: OSCAL 500 + D 1000 MG PO (12:37)
[2024-08-26 13:00] LABS: Reticulocyte Count 0.8 % (0.4-2.8)
[2024-08-26] MEDS: ATIVAN 0.5 MG IV (13:04)
[2024-08-26] MEDS: NSS (PRESERVATIVE FREE) 0.25 ML IV (13:05)
[2024-08-26 13:18] LABS: Iron 73 ug/dl (49-181); LDH 407 U/L (120-246); Uric Acid 4.8 mg/dl (3.5-8.5)
[2024-08-26 13:27] LABS: Percent Saturation 48 % (20-50); Total Iron Binding Capacity 152 ug/dl (261-462)
[2024-08-26] MEDS: STERILE WATER FOR INJECTION 2.1 ML IM (13:38)
[2024-08-26] MEDS: ZYPREXA 10 MG IM (13:38)
[2024-08-26] MEDS: MORPHINE SULFATE 2 MG IV ×7 (13:52→23:37)
[2024-08-26] MEDS: PRECEDEX 100 IV (13:54)
[2024-08-26] MEDS: FLEXBUMIN 100 IV (14:38)
--- NOTE | 2024-08-26 14:57 | PTCARENOTE ---
Pt became hypoxic on 8L midflow with sats sustained in 70s. Placed on non-rebreather with sats improved up to 90%. RT and Pooling Operator to bedside. Second dose of 40mg IV lasix ordered and given. IV Ativan 0.5mg given at 1304. Pt placed on BiPAP by RT
at bedside. After being placed on BiPAP pt became combative and made multiple attempts to remove mask/get out of bed. Pt continued to make attempts despite multiple attempts to reorient. During attempts to remove mask and get out of bed PIV with
Cardizem gtt infiltrated in L hand. Cardizem gtt placed on hold. Pooling Operator called back to bedside. 10mg Zyprexa Im ordered and given. IV team to bedside to place new IV. New PIVs placed in L FA and R FA. 2mg Mrophine Sulfate IV ordered and given.
Precedex gtt started @ 0.4 mcg/kg/min in L FA PIV per order. Goal RASS 0 to -2. RASS currently -2. Cardizem gtt remains on hold. Pt HR currently controlled 80s-100s, remains in afib. Pt now hypotensive with BP 73/49. Order for PICC placed. DL PICC
placed in MINDY. Xray ordered to confirm placement. Family wishing to hold off on starting pressors at this time. Albumin infusing through R FA PIV. Code status changed to DNR/DNI. Initiating talks with family about comfort care. BP now improved to
93/64. SpO2 100% on BiPAP 12/ @ 70%FiO2. Family at bedside.
--- NOTE | 2024-08-26 15:13 | CM ---
CM following re: discharge planning.
Reviewed pt's chart, met with pt. pt's daughter Urvashi and grandchildren at bedside.
Hospice consult noted. Pt's daughter stated she does not think pt will make till hospice evaluation. Emotional support offered and provided. pt's daughter preferred hospice.
A referral to hospice made.
D/C plan: comfort care/hospice care.
CM is available for emotional support.
--- NOTE | 2024-08-26 16:06 | W.PN.UPDATE ---
Update Note
Progress Note Update
Discussed with family, who wishes to initiate comfort care measures only.
Orders placed. Start morphine drip.
--- NOTE | 2024-08-26 16:08 | W.PN.UPDATE ---
Update Note
Progress Note Update
Today, patient has been having worsening shortness of breath, imaging consistent with pulmonary edema and he is now on BiPAP. Patient extremely agitated during this time, with multiple staff members required to restrain him while IV access was
placed and Zyprexa was required in addition to Precedex drip. Family is very overwhelmed, initially wanting us to only use high flow nasal cannula however positive airway pressure with BiPAP was required given his degree of hypoxia and respiratory
distress. After patient was stabilized, patient became hypotensive and vasopressors were going to be started. Patient's daughter, Urvashi, spoke with me. She does not think that transfer to [place] would lead to anything different in terms of the
patient's care and she actually would like the patient to stay here at [place] for further care. After further discussion was held, they actually want the patient to be DNR/DNI and transition to comfort care. Also, oncology updated us on the
peripheral blood smear showing upwards of 70% blasts, with flow cytometry showing B-cell lymphoblastic leukemia/involvement. Decision made to stop medical management and transition to comfort care now. If patient does not pass away by today then
would recommend hospice consult.
Heavy Rail Train Operator/Pulmonary service will now sign off. Thank you for allowing us to be involved in the care of this patient. Please call back if there are any additional questions or concerns.
--- NOTE | 2024-08-26 16:12 | PTCARENOTE ---
1555-Pt's daughters at bedside.Pt is very agitated.attempting to remove equipment and sit up.Precedex titrated.
1600-Agitation unchanged.2mg Morphine given as per MD order.
--- NOTE | 2024-08-26 16:21 | PTCARENOTE ---
Family deciding to move forward with comfort care at this time. Comfort care orders placed.
[2024-08-26] MEDS: MORPHINE 100 IV (16:36)
[2024-08-26] MEDS: DILAUDID 1 MG IV (17:06)
--- NOTE | 2024-08-26 17:26 | W.PN.HOSP.TC ---
Today's Communication/Plan
-
Discontinue unnecessary medications
Initiate comfort care measures only
Morphine drip
Consult hospice
Assessment / Plan
Assessment / Plan
#Septic shock
#Legionella pneumonia
#Acute hypoxic respiratory failure
#Acute toxic metabolic encephalopathy
#History of multiple myeloma
#Severe neutropenia
#Pancytopenia
#Thrombocytopenia
#Acute kidney injury
#New onset atrial fibrillation with RVR
#Nonischemic myocardial injury
#GERD
#Hypothyroidism
#BPH
08/26/2024 family wishes to transition the patient to comfort care measures only
Stop unnecessary medications, initiate comfort care measures only
Updated daughters at bedside 08/26
Total time spent to see the patient on the floor, examine the patient, review data and lab results, discuss treatment plan with patient, nursing staff around 50 minutes.
Physical Exam
General: Appears acutely ill, no acute distress
HEENT: Normocephalic, Atraumatic, EOMI, MMM
Respiratory: Right basilar crackles
Cardiac: Normal S1/S2, irregularly irregular, tachycardic rate
GI: Soft, Nontender, Nondistended, Normal Bowel Sounds
Extremities: No Clubbing, Cyanosis
Neuro: Intermittent confusion
Anticipated Discharge: Within 24 hours
Subjective/Interval History
-
Date of Service: August 26, 2024
Patient has deteriorated. He is now on BiPAP. Family has agreed to transition to comfort care measures only.
Objective Data
-
Labs:
Laboratory Results
08/26/24
05:47
WBC 0.7 L*
Hgb 8.3 L
Hct 24.1 L
Plt Count 20 L* D
Sodium 141
Potassium 4.0
Chloride 107
Carbon Dioxide 19 L
BUN 48 H
Creatinine 1.4 H
Glucose 136 H
Calcium 8.0 L
Total Bilirubin 5.0 H
AST 31
ALT 28
Alkaline Phosphatase 51
Vital Signs:
Vital Signs
Temp Pulse Resp BP Pulse Ox
98.1 F 124 16 108/78 94
08/25/24 23:21 08/26/24 08:29 08/26/24 07:28 08/26/24 08:29 08/26/24 07:28
I&O
08/25/24 08/26/24 08/27/24
06:59 06:59 06:59
Intake Total 3195 / 3195 2661 / 2673 175 / 175
Output Total 1280 / 1280 1275 / 1275 350 / 350
Balance 1914 / 1914 1386 / 1398 -175 / -175
--- NOTE | 2024-08-26 19:20 | PTCARENOTE ---
Assumed care of pt. approx 1900.
Pt. transitioned to comfort care measures only during previous shift. Started on Morphine gtt stage 1.
Family bedside, all questions answered.
--- NOTE | 2024-08-27 02:52 | PTCARENOTE ---
08/27/2024 - PT underwent gallbladder surgery on 08/26. VS stable with the exception of bradycardia - low 40's . EKG completed on 08/26 at 14:08 - bradycardia with PVC's and shared with physicians. Place of care is to continue to monitor VS and
tele. PT is now having episodes of HR in high 30's and then bumping to low 40's. Information relayed to covering hospitalist.
[2024-08-27] MEDS: MORPHINE SULFATE 2 MG IV ×9 (04:57→12:23)
[2024-08-27] MEDS: ROBINUL 0.2 MG IV ×2 (08:15→12:22)
--- NOTE | 2024-08-27 08:29 | W.PN.HOSP.TC ---
Today's Communication/Plan
-
Continue comfort care measures only
Assessment / Plan
Assessment / Plan
#B-lymphoblastic leukemia/lymphoma
#Septic shock
#Legionella pneumonia
#Acute hypoxic respiratory failure
#Acute toxic metabolic encephalopathy
#History of multiple myeloma
#Severe neutropenia
#Pancytopenia
#Thrombocytopenia
#Acute kidney injury
#New onset atrial fibrillation with RVR
#Nonischemic myocardial injury
#GERD
#Hypothyroidism
#BPH
08/26/2024
Patient's clinical status continues to deteriorate. Flow cytometry returned as B lymphoblastic leukemia/lymphoma, with 70% atypical plasma cells on peripheral smear
Family wishes to transition the patient to comfort care measures only
Stopped unnecessary medications, initiate comfort care measures only
Updated daughters at bedside 08/26, 08/27
Total time spent to see the patient on the floor, examine the patient, review data and lab results, discuss treatment plan with patient, nursing staff around 35 minutes.
Physical Exam
General: Appears acutely ill, no acute distress
HEENT: Normocephalic, Atraumatic
Respiratory: Right basilar crackles
Cardiac: Normal S1/S2, irregularly irregular, tachycardic rate
GI: Soft, Nontender, Nondistended, Normal Bowel Sounds
Extremities: No Clubbing, Cyanosis
Neuro: Intermittent confusion
Anticipated Discharge: 24 - 48 hours
Subjective/Interval History
-
Date of Service: August 27, 2024
Patient is resting comfortably.
Objective Data
-
Vital Signs:
Vital Signs
Temp Pulse Resp BP Pulse Ox
98.1 F 98 20 88/57 82
08/26/24 20:52 08/26/24 20:52 08/26/24 20:52 08/26/24 20:52 08/26/24 20:52
I&O
08/26/24 08/27/24 08/28/24
06:59 06:59 06:59
Intake Total 2661 / 2673 427 / 427
Output Total 1275 / 1275 750 / 750
Balance 1386 / 1398 -323 / -323
[2024-08-27] MEDS: LASIX 40 MG IV (08:51)
--- NOTE | 2024-08-27 09:26 | HOSPNOTE ---
Addendum entered by Ysabel Martin RN 08/27/24 15:46:
Hospice Nurse Terri met with family and provided support. Oxygen being weaned off. Patient will remain on comfort and hospice will follow for support as appears imminent. CM and Attending aware.
Original Note:
Referral received. Patient is on comfort care. Patient is presently on a morphine infusion. Spoke to Primary RN who feels patient is actively dying and is imminent. Plan is for patient to remain on comfort and hospice will follow and support.
Hospice will arrive around 12 noon today to support family. Attending aware and in agreement as well.
--- NOTE | 2024-08-27 10:03 | PTCARENOTE ---
Patient's daughters at bedside refusing vital signs and repositioning of patient. MD made aware. Patient with irregular, labored breathing, medicated with PRN morphine, see MAR. Morphine gtt infusing through R PICC, infusion increased to step 2 per
protocol.
[2024-08-27] MEDS: MORPHINE SULFATE 4 MG IV ×3 (13:26→15:32)
--- NOTE | 2024-08-27 16:30 | PTCARENOTE ---
Patient's daughter rang call quintero, stated to this RN she believes patient has passed. No spontaneous heart or lung sounds noted on assessment by this RN. and clarissa abreu made aware.
--- NOTE | 2024-08-27 17:22 | W.PN.DEATH ---
Pronouncement of
-
Called to see patient to pronounce.
No spontaneous heart tones or respirations noted.
Patient not responsive to verbal stimuli.
Patient is pronounced .
Time of : 16:30
Date of : 08/27/24
Cause of : Lymphoblastic Leukemia
Family Notified: Yes
--- NOTE | 2024-08-27 18:36 | PTCARENOTE ---
Postmortem care provided by this RN and karen. R PICC and L wrist IVs removed, condom catheter removed. Belongings taken home by family. [facility] notified.
[2024-08-28 23:27] LABS: Haptoglobin 478 mg/dL (30-200)
== END 2024-08-27 18:31 | disposition expired | DRG 834 ==
LOC: 2 NORTH 17:12
PROVIDERS: Nurse Practitioner Family; Nurse Practitioner Gerontology; Radiology Vascular & Interventional Radiology; ADMITTING PHYSICIAN Hospitalist; ATTENDING PHYSICIAN Family Medicine; CONSULT PHYSICIAN Internal Medicine Critical Care Medicine; CONSULT PHYSICIAN Internal Medicine Infectious Disease; CONSULT PHYSICIAN Student in an Organized Health Care Education/Training Program; EMERGENCY PHYSICIAN Emergency Medicine; FAMILY PHYSICIAN Family Medicine; OTHER PHYSICIAN Internal Medicine Hematology & Oncology
PROC: 02H633Z Insertion of Infusion Device into Right Atrium, Percutaneous Approach (ICD-10-PCS; 2024-08-26)
DX: C91.00 Acute lymphoblastic leukemia not having achieved remission (principal); A41.89 Other specified sepsis; A48.1 Legionnaires' disease; R65.21 Severe sepsis with septic shock; J96.01 Acute respiratory failure with hypoxia; G92.8 Other toxic encephalopathy; J18.9 Pneumonia, unspecified organism; Z94.84 Stem cells transplant status; D61.818 Other pancytopenia; D84.9 Immunodeficiency, unspecified; N17.9 Acute kidney failure, unspecified; I48.92 Unspecified atrial flutter; I5A Non-ischemic myocardial injury (non-traumatic); R44.3 Hallucinations, unspecified; E87.20 Acidosis, unspecified; Z51.5 Encounter for palliative care; C90.01 Multiple myeloma in remission; D70.9 Neutropenia, unspecified; I48.91 Unspecified atrial fibrillation; D69.59 Other secondary thrombocytopenia; E03.9 Hypothyroidism, unspecified; K21.9 Gastro-esophageal reflux disease without esophagitis; N40.0 Benign prostatic hyperplasia without lower urinary tract symptoms; E78.5 Hyperlipidemia, unspecified; Z11.52 Encounter for screening for COVID-19; Z79.82 Long term (current) use of aspirin; Z79.890 Hormone replacement therapy; M17.11 Unilateral primary osteoarthritis, right knee; E55.9 Vitamin D deficiency, unspecified; Z66 Do not resuscitate; Z80.9 Family history of malignant neoplasm, unspecified; Z82.49 Family history of ischemic heart disease and other diseases of the circulatory system
CPT/HCPCS: 71045; 80048; 80053; 80202; 81003; 81015; 82248; 82728; 82805; 82962; 83010; 83540; 83550; 83605; 83615; 83735; 83880; 84100; 84484; 84550; 85025; 85027; 85045; 85610; 85730; 87040; 87086; 87150; 87205; 87449; 87502; 87641; 87811; 87899; 93005; 93306; 94640; 96365; 96366; 96375; 99291; J2358; P9047